=== PATIENT | male | born 1960 | race Caucasian/White ===

== ENCOUNTER 2017-06-04 14:25 | Inpatient (IN) | payer MEDICARE ==
[~2017-06-04] VITALS: Ht 167.6 cm; Wt 99.8 kg
[~2017-06-04 14:25] MED LIST: ASPI81TA31 PO; Glipizide PO; HYDR4TAB4 PO; LITH300T3 PO; Lisinopril PO; OMEP20CA4 PO; SITA50TA PO; Zolpidem Tartrate PO
[2017-06-04] MEDS ORDERED: CLON0.1T PO (14:42)
[2017-06-04] MEDS ORDERED: TEMA30CA5 PO (14:42)
[2017-06-04] MEDS ORDERED: CLON2TAB PO (14:42)
[2017-06-04] MEDS ORDERED: METF10002 PO (14:42)
[2017-06-04] MEDS ORDERED: IV NORMAL SALINE 1000 ML BAG IV ONE (15:30)
[2017-06-04] MEDS ORDERED: MORPHINE SULFATE 4 MG/1 ML DISP.SYRIN IV ONE (15:30)
[2017-06-04] MEDS ORDERED: ONDANSETRON 4 MG/2 ML VIAL IV ONE (15:30)
[2017-06-04 15:53] LABS: BASOPHILS % (AUTO) 0.2 % (0.0-2.0); CREATININE 1.1 mg/dL (0.6-1.3); EOSINOPHILS # (AUTO) 0.1 K/uL (0.0-0.7); EOSINOPHILS % (AUTO) 0.7 % (0.0-7.0); HEMATOCRIT 50.5 % (40-50); HEMOGLOBIN 16.3 G/DL (14.0-18.0); LYMPHOCYTES # (AUTO) 1.1 K/UL (0.8-4.8); LYMPHOCYTES % (AUTO) 14.6 % (20.5-51.5); MEAN CORPUSCULAR HEMOGLOBIN 28.4 UUG (27.0-31.0); MEAN CORPUSCULAR HGB CONC 32 g/dL (32.0-37.0); MEAN CORPUSCULAR VOLUME 87.6 FL (82.0-92.0); MONOCYTES # (AUTO) 0.4 K/UL (0.1-1.30); NEUTROPHILS # (AUTO) 5.8 K/UL (1.8-8.9); NEUTROPHILS % (AUTO) 79.5 % (38.5-71.5); PLATELET COUNT (AUTO) 216 K/UL (150-450); POTASSIUM 3.8 mmol/L (3.5-5.1); RED BLOOD CELL COUNT(AUTO) 5.76 MIL/UL (4.7-6.1); WHITE BLOOD COUNT (AUTO) 7.4 K/UL (4.0-11.2)
[2017-06-04] MEDS ORDERED: ONDANSETRON 4 MG/2 ML VIAL ONE (16:03)
[2017-06-04] MEDS ORDERED: MORPHINE SULFATE 4 MG/1 ML DISP.SYRIN ONE (16:03)
[2017-06-04 16:05] LABS: BILIRUBIN,DIRECT 0.4 mg/dL (0.0-0.2); BILIRUBIN,TOTAL 1.1 mg/dL (0.2-1.0); TOTAL PROTEIN, SERUM 6.9 g/dL (6.4-8.2)
[2017-06-04] MEDS ORDERED: IV NS 1000 ML 1,000 ML IV ONE (16:30)
--- NOTE | 2017-06-04 17:57 | NUR ---
PT WAS EVALUATED BY DR WOLFF. PT WAS MEDICATED ACCORDING TO ER MD ORDERS. PT WAS TRANSFERED TO ROOM #220. REPORT WAS GIVEN TO JEEVAN M/Brittany.
[2017-06-04 18:51] VITALS: BP 130/75
[2017-06-04 19:00] VITALS: BP 130/75
[2017-06-04] MEDS ORDERED: CLONAZEPAM 0.5 MG TABLET PO PRN (19:15)
[2017-06-04] MEDS ORDERED: MAGNESIUM HYDROXIDE 30 ML LIQUID UDC PO PRN (19:15)
[2017-06-04] MEDS ORDERED: ONDANSETRON 4 MG/2 ML VIAL IV PRN (19:15)
[2017-06-04] MEDS ORDERED: HYDROMORPHONE 1 MG/1 ML DISP.SYRIN IV PRN (19:15)
--- NOTE | 2017-06-04 19:30 | NUR ---
RECEIVED PT IN BED, AWAKE, ALERT. NENANA. ADMITTED TO MED SURG UNDER CARE OF DR. HALL. DX: DEHYDRATION, ABDOMINAL PAIN. INITIATE ADMISSION ASSESSMENTS. SAFETY OBSERVED. CALL LIGHT WITHIN REACH.
[2017-06-04] MEDS: DOCUSATE SODIUM 100 MG CAPSULE PO SCH (20:04)
[2017-06-04] MEDS: METFORMIN HCL 500 MG TABLET PO SCH (20:04)
[2017-06-04] MEDS: TEMAZEPAM 30 MG CAPSULE PO SCH (20:05)
[2017-06-04] MEDS: CLONIDINE HCL 0.1 MG TABLET PO SCH (20:06)
[2017-06-04] MEDS: HYDROMORPHONE 2 MG/1 ML DISP.SYRIN IV PRN (20:06)
[2017-06-05] MEDS: HYDROMORPHONE 2 MG/1 ML DISP.SYRIN IV PRN ×6 (00:24→20:49)
[2017-06-05 05:00] VITALS: BP 134/88
[2017-06-05] MEDS: PANTOPRAZOLE SODIUM 40 MG TABLET.DR PO SCH (06:23)
[2017-06-05 07:00] LABS: BASOPHILS % (AUTO) 0.2 % (0.0-2.0); EOSINOPHILS # (AUTO) 0.1 K/uL (0.0-0.7); EOSINOPHILS % (AUTO) 1.2 % (0.0-7.0); HEMATOCRIT 45.8 % (40-50); HEMOGLOBIN 15.2 G/DL (14.0-18.0); LYMPHOCYTES # (AUTO) 1.4 K/UL (0.8-4.8); LYMPHOCYTES % (AUTO) 24.9 % (20.5-51.5); MEAN CORPUSCULAR HGB CONC 33 g/dL (32.0-37.0); MEAN CORPUSCULAR VOLUME 87.1 FL (82.0-92.0); MONOCYTES # (AUTO) 0.3 K/UL (0.1-1.30); MONOCYTES % (AUTO) 4.6 % (0.0-11.0); NEUTROPHILS % (AUTO) 69.1 % (38.5-71.5); PLATELET COUNT (AUTO) 185 K/UL (150-450); RED BLOOD CELL COUNT(AUTO) 5.25 MIL/UL (4.7-6.1); WHITE BLOOD COUNT (AUTO) 5.8 K/UL (4.0-11.2)
--- NOTE | 2017-06-05 07:00 | NUR ---
PT SLEPT INTERMITTENTLY. IN NO ACUTE DISTRESS. ON PAIN MANAGEMENT FOR LEFT ARM PAIN, AND WITH SOME RELIEF. AMBULATORY. SAFETY MAINTAINED. CALL LIGHT WITHIN REACH.
[2017-06-05] MEDS: glipiZIDE 10 MG TABLET PO SCH ×2 (07:01→16:12)
--- NOTE | 2017-06-05 07:29 | NUR ---
PT RECEIVED IN BED SLEEPING,NO C/O PAIN NOTED.PT IS H O H AND AXOX4.BREAKFAST SERVED.
[2017-06-05] MEDS ORDERED: [UNRECOGNIZED DRUG - OTHER] PO SCH (07:30)
[2017-06-05 07:31] LABS: THYROID STIMULATING HORMONE 1.928 mIU/mL (0.358-3.740)
[2017-06-05 07:52] LABS: BILIRUBIN,TOTAL 0.6 mg/dL (0.2-1.0); CREATININE 1.5 mg/dL (0.6-1.3); MAGNESIUM 1.8 mg/dL (1.8-2.4); PHOSPHOROUS 1.8 mg/dL (2.5-4.9); POTASSIUM 3.8 mmol/L (3.5-5.1); TOTAL PROTEIN, SERUM 6.6 g/dL (6.4-8.2)
[2017-06-05] MEDS: LITHIUM CARBONATE 300 MG TABLET PO SCH ×2 (08:00→16:12)
[2017-06-05] MEDS: METFORMIN HCL 500 MG TABLET PO SCH ×2 (08:00→17:01)
[2017-06-05] MEDS: CLONIDINE HCL 0.1 MG TABLET PO SCH ×2 (08:00→20:44)
[2017-06-05] MEDS: FOLIC ACID 1 MG TABLET PO SCH (08:18)
[2017-06-05] MEDS: THIAMINE HCL 100 MG TABLET PO SCH (08:18)
[2017-06-05] MEDS: MULTIVITAMINS,THERAPEUTIC TABLET PO SCH (08:18)
[2017-06-05] MEDS ORDERED: Medication Not On Formulary EA (Metformin Hcl 1,000 MG) PO SCH (09:00)
[2017-06-05] MEDS ORDERED: DEXTROSE 50% 50 ML DISP.SYRIN IV PRN (10:15)
[2017-06-05] MEDS: BLOOD SUGAR DIAGNOSTIC 1 EACH STRIP VI SCH ×3 (11:05→20:53)
[2017-06-05] MEDS: INSULIN REGULAR, HUMAN 300 UNIT/3 ML VIAL SQ PRN ×3 (11:15→21:43)
[2017-06-05 11:34] VITALS: BP 122/72
[2017-06-05] MEDS ORDERED: NEUTRA PHOS PACKET PO ONE (15:15)
[2017-06-05 16:02] VITALS: BP 145/91
--- NOTE | 2017-06-05 17:13 | NUR ---
PT SLEPT INTERMITTENTLY. IN NO ACUTE DISTRESS. ON PAIN MANAGEMENT FOR LEFT ARM PAIN, AND WITH SOME RELIEF. AMBULATORY. SAFETY MAINTAINED. CALL LIGHT WITHIN REACH.
--- NOTE | 2017-06-05 19:45 | NUR ---
PT RECEIVED IN BED, AWAKE. A/OX4. ABLE TO MAKE NEEDS KNOWN. STATES HE IS DEAF, USE OF NOTE PAD TO COMMUNICATE. V/S STABLE. NO SIGNS OF ACUTE DISTRESS NOTED. NO COMPLAINTS OF PAIN AT THIS TIME. IV LINE INTACT/PATENT, C/D/I, HEP-LOCKED. PT IS AMBULATORY. SAFETY MEASURES IMPLEMENTED. CALL LIGHT WITHIN REACH. WILL CONTINUE TO MONITOR.
[2017-06-05 20:00] VITALS: BP 154/96
[2017-06-05] MEDS: DOCUSATE SODIUM 100 MG CAPSULE PO SCH (20:44)
[2017-06-05] MEDS: TEMAZEPAM 30 MG CAPSULE PO SCH (20:45)
[2017-06-06] MEDS: HYDROMORPHONE 2 MG/1 ML DISP.SYRIN IV PRN ×6 (01:41→21:21)
[2017-06-06 05:03] VITALS: BP 145/86
[2017-06-06] MEDS: glipiZIDE 10 MG TABLET PO SCH ×2 (06:33→16:03)
[2017-06-06] MEDS: PANTOPRAZOLE SODIUM 40 MG TABLET.DR PO SCH (06:33)
[2017-06-06] MEDS: BLOOD SUGAR DIAGNOSTIC 1 EACH STRIP VI SCH ×4 (06:34→21:25)
--- NOTE | 2017-06-06 07:26 | NUR ---
END OF SHIFT NOTES. PT SLEPT INTERMITTENTLY THROUGHOUT SHIFT. V/S STABLE. NO SIGNS OF ACUTE DISTRESS. PT COMPLAINTS OF LEFT ARM PAIN. PAIN MEDICATIONS ADMINISTERED ORDERED. NEW IV STARTED IN RIGHT HAND. IV RIGHT SHOULDER D/C. NEEDS ATTENDED. SAFETY MAINTAINED. CALL LIGHT WITHIN REACH.
[2017-06-06] MEDS: MULTIVITAMINS,THERAPEUTIC TABLET PO SCH (08:00)
[2017-06-06] MEDS: LITHIUM CARBONATE 300 MG TABLET PO SCH ×2 (08:00→16:03)
[2017-06-06] MEDS: THIAMINE HCL 100 MG TABLET PO SCH (08:00)
[2017-06-06] MEDS: FOLIC ACID 1 MG TABLET PO SCH (08:00)
[2017-06-06] MEDS: METFORMIN HCL 500 MG TABLET PO SCH ×2 (08:00→17:06)
[2017-06-06] MEDS: CLONIDINE HCL 0.1 MG TABLET PO SCH ×2 (08:00→21:19)
[2017-06-06] MEDS: INSULIN REGULAR, HUMAN 300 UNIT/3 ML VIAL SQ PRN ×3 (11:02→21:29)
--- NOTE | 2017-06-06 15:50 | NUR ---
RECEIVED PT IN BED, AWAKE, ALERT. COMANCHE. SAFETY OBSERVED. CALL LIGHT WITHIN REACH.
[2017-06-06 16:08] VITALS: BP 138/70
[2017-06-06 16:36] LABS: PHOSPHOROUS 2.4 mg/dL (2.5-4.9); POTASSIUM 3.5 mmol/L (3.5-5.1)
[2017-06-06] MEDS: LORAZEPAM 2 MG/1 ML VIAL IV PRN ×2 (16:54→23:22)
[2017-06-06] MEDS ORDERED: HYDROMORPHONE 2 MG/1 ML DISP.SYRIN IV PRN (17:00)
--- NOTE | 2017-06-06 19:30 | NUR ---
PT RECEIVED IN BED, ASLEEP. V/S STABLE. NO ACUTE DISTRESS NOTED. PT SHOWS NO SIGNS OF PAIN AT THIS TIME. IV LINE C/D/I AND PATENT. SAFETY MEASURES IMPLEMENTED. CALL LIGHT WITHIN REACH. WILL CONT TO MONITOR.
[2017-06-06 20:25] VITALS: BP 137/80
[2017-06-06] MEDS: DOCUSATE SODIUM 100 MG CAPSULE PO SCH (21:18)
[2017-06-06] MEDS: TEMAZEPAM 30 MG CAPSULE PO SCH (21:19)
[2017-06-07] MEDS: HYDROMORPHONE 2 MG/1 ML DISP.SYRIN IV PRN ×8 (00:14→21:17)
[2017-06-07 04:47] VITALS: BP 158/97
--- NOTE | 2017-06-07 05:34 | NUR ---
END OF SHIFT NOTES. PT SLEPT INTERMITTENTLY THROUGHOUT SHIFT. NEEDS ATTENDED. V/S STABLE. NO ACUTE DISTRESS NOTED. PT COMPLAINT OF LEFT ARM PAIN. ADMINISTERED PAIN MEDICATION ORDERED. PT VERBALIZED RELIEF OF PAIN. SAFETY MAINTAINED. CALL LIGHT WITHIN REACH
[2017-06-07] MEDS: PANTOPRAZOLE SODIUM 40 MG TABLET.DR PO SCH (06:12)
[2017-06-07] MEDS: glipiZIDE 10 MG TABLET PO SCH ×2 (06:12→15:46)
[2017-06-07] MEDS: BLOOD SUGAR DIAGNOSTIC 1 EACH STRIP VI SCH ×4 (06:17→21:25)
[2017-06-07] MEDS: LORAZEPAM 2 MG/1 ML VIAL IV PRN ×2 (07:27→22:39)
[2017-06-07] MEDS: INSULIN REGULAR, HUMAN 300 UNIT/3 ML VIAL SQ PRN ×2 (07:28→15:40)
[2017-06-07] MEDS: LITHIUM CARBONATE 300 MG TABLET PO SCH ×2 (08:16→16:09)
[2017-06-07] MEDS: MULTIVITAMINS,THERAPEUTIC TABLET PO SCH (08:16)
[2017-06-07] MEDS: METFORMIN HCL 500 MG TABLET PO SCH ×2 (08:16→17:04)
[2017-06-07] MEDS: CLONIDINE HCL 0.1 MG TABLET PO SCH ×2 (08:16→21:16)
[2017-06-07] MEDS: FOLIC ACID 1 MG TABLET PO SCH (08:16)
[2017-06-07] MEDS: THIAMINE HCL 100 MG TABLET PO SCH (08:16)
[2017-06-07 10:42] LABS: BILIRUBIN,TOTAL 0.4 mg/dL (0.2-1.0); CREATININE 1.1 mg/dL (0.6-1.3); MAGNESIUM 1.8 mg/dL (1.8-2.4); PHOSPHOROUS 3.4 mg/dL (2.5-4.9); POTASSIUM 3.3 mmol/L (3.5-5.1); TOTAL PROTEIN, SERUM 6.2 g/dL (6.4-8.2)
[2017-06-07 10:54] LABS: BASOPHILS % (AUTO) 0.3 % (0.0-2.0); EOSINOPHILS # (AUTO) 0.4 K/uL (0.0-0.7); EOSINOPHILS % (AUTO) 7.7 % (0.0-7.0); HEMOGLOBIN 13.9 G/DL (14.0-18.0); LYMPHOCYTES # (AUTO) 2.1 K/UL (0.8-4.8); LYMPHOCYTES % (AUTO) 37.3 % (20.5-51.5); MEAN CORPUSCULAR HEMOGLOBIN 27.9 UUG (27.0-31.0); MEAN CORPUSCULAR HGB CONC 32 g/dL (32.0-37.0); MEAN CORPUSCULAR VOLUME 88.3 FL (82.0-92.0); MONOCYTES # (AUTO) 0.3 K/UL (0.1-1.30); MONOCYTES % (AUTO) 5.8 % (0.0-11.0); NEUTROPHILS # (AUTO) 2.7 K/UL (1.8-8.9); NEUTROPHILS % (AUTO) 48.9 % (38.5-71.5); PLATELET COUNT (AUTO) 149 K/UL (150-450); RED BLOOD CELL COUNT(AUTO) 4.98 MIL/UL (4.7-6.1); WHITE BLOOD COUNT (AUTO) 5.5 K/UL (4.0-11.2)
[2017-06-07 11:55] VITALS: BP 129/78
[2017-06-07 16:08] VITALS: BP 126/76
[2017-06-07 20:24] VITALS: BP 139/83
[2017-06-07] MEDS: DOCUSATE SODIUM 100 MG CAPSULE PO SCH (21:16)
[2017-06-07] MEDS: TEMAZEPAM 30 MG CAPSULE PO SCH (21:18)
[2017-06-08] MEDS: HYDROMORPHONE 2 MG/1 ML DISP.SYRIN IV PRN ×5 (00:12→12:17)
[2017-06-08 04:56] VITALS: BP 144/89
[2017-06-08] MEDS: PANTOPRAZOLE SODIUM 40 MG TABLET.DR PO SCH (06:17)
[2017-06-08] MEDS: INSULIN REGULAR, HUMAN 300 UNIT/3 ML VIAL SQ PRN (07:51)
[2017-06-08] MEDS: METFORMIN HCL 500 MG TABLET PO SCH (07:51)
[2017-06-08] MEDS: BLOOD SUGAR DIAGNOSTIC 1 EACH STRIP VI SCH ×2 (07:51→11:38)
[2017-06-08] MEDS: glipiZIDE 10 MG TABLET PO SCH (07:55)
[2017-06-08] MEDS: LORAZEPAM 2 MG/1 ML VIAL IV PRN (07:55)
[2017-06-08] MEDS: LITHIUM CARBONATE 300 MG TABLET PO SCH (08:06)
[2017-06-08] MEDS: FOLIC ACID 1 MG TABLET PO SCH (08:07)
[2017-06-08] MEDS: THIAMINE HCL 100 MG TABLET PO SCH (08:07)
[2017-06-08] MEDS: MULTIVITAMINS,THERAPEUTIC TABLET PO SCH (08:07)
[2017-06-08] MEDS: CLONIDINE HCL 0.1 MG TABLET PO SCH (08:07)
--- NOTE | 2017-06-08 10:00 | NUR ---
PT REFUSED THE ABDOMINAL US ,EAT HIS BREAKFAST, MADE AWARE.
[2017-06-08 11:11] VITALS: BP 112/65
[2017-06-08] MEDS ORDERED: MULT-24 PO (13:53)
[2017-06-08] MEDS ORDERED: HYDR2TAB4 PO (13:53)
--- NOTE | 2017-06-08 14:36 | NUR ---
d/c orders received noted and carried out.d/c instructions and educations given to the pt,d/c jon per md orders.pt left the facility via private car in stable condition.
== END 2017-06-08 14:40 | disposition home or self-care (01) | DRG 391 ==
LOC: ER 14:25 → MED 17:54
PROVIDERS: ADMIT Internal Medicine; ATTEND Internal Medicine
DX: A08.4 Viral intestinal infection, unspecified (principal); I50.31 Acute diastolic (congestive) heart failure; N17.0 Acute kidney failure with tubular necrosis; F11.20 Opioid dependence, uncomplicated; E11.65 Type 2 diabetes mellitus with hyperglycemia; E83.119 Hemochromatosis, unspecified; E66.9 Obesity, unspecified; E86.0 Dehydration; E88.81 Metabolic syndrome and other insulin resistance; F10.10 Alcohol abuse, uncomplicated; E11.40 Type 2 diabetes mellitus with diabetic neuropathy, unspecified; G89.4 Chronic pain syndrome; H91.90 Unspecified hearing loss, unspecified ear; I25.10 Atherosclerotic heart disease of native coronary artery without angina pectoris; K74.60 Unspecified cirrhosis of liver; K80.20 Calculus of gallbladder without cholecystitis without obstruction; F41.9 Anxiety disorder, unspecified; F43.10 Post-traumatic stress disorder, unspecified; F03.90 Unspecified dementia, unspecified severity, without behavioral disturbance, psychotic disturbance, mood disturbance, and anxiety; X58.XXXS Exposure to other specified factors, sequela; F31.9 Bipolar disorder, unspecified; Z68.35 Body mass index [BMI] 35.0-35.9, adult; K70.10 Alcoholic hepatitis without ascites; Y90.9 Presence of alcohol in blood, level not specified; I11.0 Hypertensive heart disease with heart failure; F29 Unspecified psychosis not due to a substance or known physiological condition; S09.90XS Unspecified injury of head, sequela; V49.9XXS Car occupant (driver) (passenger) injured in unspecified traffic accident, sequela
CPT/HCPCS: 36415; 70030-TC; 71010; 73080; 73090; 73110; 83550; 83690; 83735; 84100; 84443; 85025; 93005; 93307; A4663; J1170; J1815; J2060; J2270; J2405; J7030

== ENCOUNTER 2017-07-09 11:43 | Inpatient (IN) | payer MEDICARE ==
[~2017-07-09] VITALS: Ht 170.2 cm; Wt 86.2 kg
[~2017-07-09 11:43] MED LIST changes: -ASPI81TA31 PO; +CLON0.1T PO; +CLON2TAB PO; +HYDR2TAB4 PO; -HYDR4TAB4 PO; -Lisinopril PO; +METF10002 PO; +MULT-24 PO; -OMEP20CA4 PO; -SITA50TA PO; +TEMA30CA5 PO; -Zolpidem Tartrate PO
[2017-07-09] MEDS ORDERED: IV NORMAL SALINE 1000 ML BAG IV ONE (12:15)
[2017-07-09 12:41] LABS: BASOPHILS # (AUTO) 0.2 K/uL (0.0-8.0); BASOPHILS % (AUTO) 4.3 % (0.0-2.0); EOSINOPHILS % (AUTO) 0.2 % (0.0-7.0); HEMATOCRIT 49.9 % (40-50); HEMOGLOBIN 16.1 G/DL (14.0-18.0); LYMPHOCYTES # (AUTO) 1.3 K/UL (0.8-4.8); LYMPHOCYTES % (AUTO) 23.3 % (20.5-51.5); MEAN CORPUSCULAR HEMOGLOBIN 28.9 UUG (27.0-31.0); MEAN CORPUSCULAR HGB CONC 32 g/dL (32.0-37.0); MEAN CORPUSCULAR VOLUME 89.8 FL (82.0-92.0); MONOCYTES # (AUTO) 0.5 K/UL (0.1-1.30); MONOCYTES % (AUTO) 9.2 % (0.0-11.0); NEUTROPHILS # (AUTO) 3.6 K/UL (1.8-8.9); PLATELET COUNT (AUTO) 188 K/UL (150-450); RED BLOOD CELL COUNT(AUTO) 5.56 MIL/UL (4.7-6.1); WHITE BLOOD COUNT (AUTO) 5.6 K/UL (4.0-11.2)
[2017-07-09] MEDS ORDERED: ONDANSETRON 4 MG/2 ML VIAL IV ONE (12:45)
[2017-07-09] MEDS ORDERED: HYDROMORPHONE 1 MG/1 ML DISP.SYRIN IV ONE (12:45)
[2017-07-09 12:49] LABS: BILIRUBIN,DIRECT 0.3 mg/dL (0.0-0.2); BILIRUBIN,TOTAL 1.1 mg/dL (0.2-1.0); CREATININE 1.3 mg/dL (0.6-1.3)
[2017-07-09 12:54] LABS: POTASSIUM 2.7 mmol/L (3.5-5.1)
[2017-07-09] MEDS ORDERED: ONDANSETRON 4 MG/2 ML VIAL ONE (12:57)
[2017-07-09] MEDS ORDERED: HYDROMORPHONE 2 MG/1 ML DISP.SYRIN ONE (12:57)
[2017-07-09] MEDS ORDERED: POTASSIUM CHLORIDE 50 ML IV STA (13:14)
[2017-07-09] MEDS ORDERED: POTASSIUM CHLORIDE 100 ML ONE (13:32)
[2017-07-09] MEDS ORDERED: METRONIDAZOLE 500 MG/NS 100 ML PIGGYBACK IV ONE (14:15)
[2017-07-09] MEDS ORDERED: METRONIDAZOLE 500 MG/NS 100ML 100 ML IV ONE (14:29)
--- NOTE | 2017-07-09 14:40 | NUR ---
Patient reported burning at IV site, IV infusion stopped temporarily so patient can rest, will resume infusion in 10 minutes per patient request.
[2017-07-09] MEDS ORDERED: LORAZEPAM 2 MG/1 ML VIAL IV ONE (14:45)
[2017-07-09] MEDS ORDERED: LORAZEPAM 2 MG/1 ML VIAL ONE (14:56)
--- NOTE | 2017-07-09 15:05 | NUR ---
Pt. admitted to TELE, under care of Dr. Coy Belongs List completed
--- NOTE | 2017-07-09 15:15 | NUR ---
Received from ER per irena, this 57 yo male, with the chief complaint of abdominal pain and diarrhea, with the diagnosis of Hypokalemia. Transferred to bed comfortably. Routine admission care rendered. Placed on tele, ST. Awake, alert, oriented x 3, deaf, able to move all extremities on purpose, ambulatory. Noted discharge and redness on left eye. Placed on contact isolation. Dr. Coy informed of admission.
[2017-07-09 15:29] VITALS: BP 182/103
[2017-07-09] MEDS ORDERED: HYDROCODONE/APAP 5-325MG TABLET PO PRN (16:15)
[2017-07-09] MEDS ORDERED: ACETAMINOPHEN 325 MG TABLET PO PRN (16:15)
[2017-07-09] MEDS ORDERED: ONDANSETRON 4 MG/2 ML VIAL IV PRN (16:15)
[2017-07-09] MEDS ORDERED: ZOLPIDEM 5 MG TABLET PO PRN (16:15)
[2017-07-09] MEDS ORDERED: HYDROCODONE/APAP 10-325 MG TABLET PO PRN (16:15)
[2017-07-09] MEDS ORDERED: Z GUARD REMEDY PASTE 57 GM TUBE TOP PRN (16:15)
[2017-07-09] MEDS ORDERED: DEXTROSE 50% 50 ML DISP.SYRIN IV PRN (16:30)
[2017-07-09] MEDS: MORPHINE SULFATE 2 MG/1 ML DISP.SYRIN IV PRN ×3 (16:47→22:59)
[2017-07-09] MEDS: IV NS 1000 ML 1,000 ML IV PRN (16:47)
[2017-07-09] MEDS: LITHIUM CARBONATE 300 MG TABLET PO SCH (16:57)
[2017-07-09] MEDS: glipiZIDE 10 MG TABLET PO SCH (16:58)
--- NOTE | 2017-07-09 17:00 | NUR ---
Complaining of pain, Morphine IV given. IVF started as ordered. Dinner served.
[2017-07-09] MEDS: BLOOD SUGAR DIAGNOSTIC 1 EACH STRIP VI SCH ×2 (17:01→20:00)
[2017-07-09] MEDS: CEFTRIAXONE 1 G in IV DEXTROSE 5% 50 ML IV SCH (17:01)
[2017-07-09] MEDS: INSULIN REGULAR, HUMAN 300 UNIT/3 ML VIAL SQ PRN (17:02)
[2017-07-09] MEDS ORDERED: METFORMIN HCL 850 MG TABLET PO SCH (18:00)
[2017-07-09 18:39] VITALS: BP 123/80
[2017-07-09] MEDS: METFORMIN HCL 500 MG TABLET PO SCH (18:39)
[2017-07-09 20:00] VITALS: BP 142/82
[2017-07-09] MEDS: CLONIDINE HCL 0.1 MG TABLET PO SCH (20:00)
[2017-07-09] MEDS: METRONIDAZOLE 500 MG/NS 100ML 500 MG in PREMIXED 1 EACH IV SCH (21:05)
[2017-07-10] MEDS: MORPHINE SULFATE 2 MG/1 ML DISP.SYRIN IV PRN ×8 (02:02→23:43)
[2017-07-10 04:29] LABS: *BILIRUBIN,URIN 1+ (NEGATIVE); *BLOOD, URINE NEGATIVE (NEGATIVE); *COLOR,URINE AMBER (YELLOW); *PROTEIN,URINE 2+ (NEGATIVE); *UROBILINOGEN,URINE 0.2 E.U./dl (NORMAL); LEUKOCYTE ESTERASE ,URINE NEGATIVE (NEGATIVE); NITRITE, URINE NEGATIVE (NEGATIVE); PH,URINE 7.5 (5.0-8.0); UGLUCOSE NEGATIVE (NEGATIVE)
[2017-07-10 04:40] LABS: *CLARITY,URINE CLEAR (CLEAR)
[2017-07-10 04:41] LABS: *KETONES,URINE NEGATIVE (NEGATIVE)
[2017-07-10 04:42] LABS: BACTERIA,URINE NONE SEEN /HPF (NONE SEEN); SQUAMOUS EPITHELIAL CELL,UR NONE SEEN /HPF (NONE SEEN); WBC,URINE 0-3 /HPF (0-3)
[2017-07-10] MEDS: METRONIDAZOLE 500 MG/NS 100ML 500 MG in PREMIXED 1 EACH IV SCH ×3 (05:02→21:12)
[2017-07-10 05:06] VITALS: BP 146/86
[2017-07-10] MEDS: IV NS 1000 ML 1,000 ML IV PRN (05:56)
[2017-07-10] MEDS: PANTOPRAZOLE SODIUM 40 MG TABLET.DR PO SCH (06:00)
[2017-07-10 06:35] LABS: BASOPHILS % (AUTO) 0.3 % (0.0-2.0); EOSINOPHILS # (AUTO) 0.1 K/uL (0.0-0.7); EOSINOPHILS % (AUTO) 2.4 % (0.0-7.0); HEMOGLOBIN 14.6 G/DL (14.0-18.0); LYMPHOCYTES # (AUTO) 2.2 K/UL (0.8-4.8); LYMPHOCYTES % (AUTO) 36.6 % (20.5-51.5); MEAN CORPUSCULAR HEMOGLOBIN 29.8 UUG (27.0-31.0); MEAN CORPUSCULAR HGB CONC 33 g/dL (32.0-37.0); MEAN CORPUSCULAR VOLUME 90.1 FL (82.0-92.0); MONOCYTES # (AUTO) 0.4 K/UL (0.1-1.30); MONOCYTES % (AUTO) 6.9 % (0.0-11.0); NEUTROPHILS # (AUTO) 3.3 K/UL (1.8-8.9); NEUTROPHILS % (AUTO) 53.8 % (38.5-71.5); PLATELET COUNT (AUTO) 166 K/UL (150-450)
[2017-07-10] MEDS: BLOOD SUGAR DIAGNOSTIC 1 EACH STRIP VI SCH ×4 (06:38→20:28)
--- NOTE | 2017-07-10 06:44 | NUR ---
PT SLEPT INTERMITTENTLY, IN NO ACUTE DISTRESS. IVF RUNNING, INTACT, NO INFILTRATION NOTED. ACCUCHECKS ORDERED, NO S/S OF HYPO/HYPERGLYCEMIA. PAIN MANAGEMENT ORDERED. IV ANTIBIOTIC ADMINISTERED ORDERED, NO S/S OF ADVERSE REACTION NOTED. SAFETY MEASURES IN PLACE, CALL LIGHT WITHIN REACH, BED ALARM ON. WILL CONTINUE TO MONITOR.
[2017-07-10 06:47] LABS: RED BLOOD CELL COUNT(AUTO) 4.89 MIL/UL (4.7-6.1)
[2017-07-10 07:38] LABS: CREATININE 1.3 mg/dL (0.6-1.3); MAGNESIUM 1.7 mg/dL (1.8-2.4); PHOSPHOROUS 1.9 mg/dL (2.5-4.9); POTASSIUM 3.3 mmol/L (3.5-5.1)
[2017-07-10] MEDS: INSULIN REGULAR, HUMAN 300 UNIT/3 ML VIAL SQ PRN ×2 (07:54→16:43)
[2017-07-10] MEDS: glipiZIDE 10 MG TABLET PO SCH ×2 (07:55→16:40)
[2017-07-10] MEDS: METFORMIN HCL 500 MG TABLET PO SCH ×2 (07:56→16:41)
[2017-07-10] MEDS: MULTIVITAMINS,THERAPEUTIC TABLET PO SCH (07:56)
[2017-07-10] MEDS: LITHIUM CARBONATE 300 MG TABLET PO SCH ×2 (07:56→16:40)
[2017-07-10] MEDS: CLONIDINE HCL 0.1 MG TABLET PO SCH ×2 (07:56→20:33)
--- NOTE | 2017-07-10 08:00 | NUR ---
ALERT AND ORIENTED X3 BUT [place], NO SIGNS OF SOB, C/O ON AND OFF GENERALIZED PAIN PRN MEDS GIVEN
[2017-07-10 11:16] VITALS: BP 102/58
[2017-07-10 11:22] VITALS: BP 117/61
[2017-07-10] MEDS ORDERED: POTASSIUM CHLORIDE 20 MEQ TAB.PRT.SR PO ONE (14:15)
[2017-07-10] MEDS: MAGNESIUM SULFATE/D5W 100 ML IV SCH ×2 (14:32→15:04)
[2017-07-10] MEDS ORDERED: NEUTRA PHOS PACKET PO ONE (15:15)
[2017-07-10] MEDS: CEFTRIAXONE 1 G in IV DEXTROSE 5% 50 ML IV SCH (16:42)
[2017-07-10 20:00] VITALS: BP 153/81
[2017-07-11] MEDS: IV NS 1000 ML 1,000 ML IV PRN ×2 (00:29→14:08)
[2017-07-11 00:30] VITALS: BP 145/75
[2017-07-11] MEDS: MORPHINE SULFATE 2 MG/1 ML DISP.SYRIN IV PRN ×7 (02:43→21:36)
[2017-07-11] MEDS: METRONIDAZOLE 500 MG/NS 100ML 500 MG in PREMIXED 1 EACH IV SCH ×3 (05:50→21:28)
[2017-07-11] MEDS: PANTOPRAZOLE SODIUM 40 MG TABLET.DR PO SCH (06:03)
--- NOTE | 2017-07-11 06:30 | NUR ---
PT SLEPT INTERMITTENTLY, IN NO ACUTE DISTRESS. PAIN MANAGEMENT Q3H ORDERED. NO SIGNIFICANT CHANGE IN CONDITION THROUGHOUT THE SHIFT. PT ON TELE SINUS GRAY. WILL CONTINUE TO MONITOR.
[2017-07-11 06:40] LABS: POTASSIUM 3.2 mmol/L (3.5-5.1)
[2017-07-11] MEDS: BLOOD SUGAR DIAGNOSTIC 1 EACH STRIP VI SCH ×4 (06:53→20:39)
[2017-07-11] MEDS: INSULIN REGULAR, HUMAN 300 UNIT/3 ML VIAL SQ PRN ×2 (07:55→17:03)
--- NOTE | 2017-07-11 08:00 | NUR ---
Pt resting in bed with eyes closed. No signs of respiratory distress or pain. SR/SB on monitor.
[2017-07-11] MEDS: LITHIUM CARBONATE 300 MG TABLET PO SCH ×2 (08:01→16:48)
[2017-07-11] MEDS: MULTIVITAMINS,THERAPEUTIC TABLET PO SCH (08:01)
[2017-07-11] MEDS: glipiZIDE 10 MG TABLET PO SCH ×2 (08:01→16:48)
[2017-07-11] MEDS: METFORMIN HCL 500 MG TABLET PO SCH ×2 (08:01→16:48)
[2017-07-11] MEDS: CLONIDINE HCL 0.1 MG TABLET PO SCH ×2 (08:02→20:34)
[2017-07-11 11:18] VITALS: BP 135/75
--- NOTE | 2017-07-11 12:00 | NUR ---
Pt up OOB ambulating down hallway very loud. Requesting pain medication every 3 hours for chronic pain. Continue with pain management.
[2017-07-11] MEDS ORDERED: POTASSIUM CHLORIDE 20 MEQ TAB.PRT.SR PO ONE ×2 (12:30→14:45)
[2017-07-11 15:17] VITALS: BP 141/66
--- NOTE | 2017-07-11 16:00 | NUR ---
seen by Dr De La Garza. Noted labs with low potassium with orders. Additional 40mg K dur given as ordered by Dr De La Garza. Pt becomes very hostile and agitated during ADLs. Continue IV antibiotics and glucose monitoring. No reactions from insulin and antibiotics noted at this time. Pt's status now changed to Medsurg per Dr Gerber.
[2017-07-11] MEDS: CEFTRIAXONE 1 G in IV DEXTROSE 5% 50 ML IV SCH (16:48)
[2017-07-11 20:00] VITALS: BP 173/82
[2017-07-11] MEDS: CLONAZEPAM 1 MG TABLET PO PRN (20:34)
[2017-07-12] MEDS: MORPHINE SULFATE 2 MG/1 ML DISP.SYRIN IV PRN ×7 (00:35→21:09)
[2017-07-12 04:58] VITALS: BP 165/78
[2017-07-12] MEDS: METRONIDAZOLE 500 MG/NS 100ML 500 MG in PREMIXED 1 EACH IV SCH ×3 (06:34→22:13)
[2017-07-12] MEDS ORDERED: MORPHINE SULFATE 4 MG/1 ML DISP.SYRIN ONE (06:35)
[2017-07-12] MEDS: PANTOPRAZOLE SODIUM 40 MG TABLET.DR PO SCH (06:40)
[2017-07-12] MEDS: BLOOD SUGAR DIAGNOSTIC 1 EACH STRIP VI SCH ×4 (06:52→21:10)
[2017-07-12 07:06] LABS: POTASSIUM 3.6 mmol/L (3.5-5.1)
[2017-07-12] MEDS: INSULIN REGULAR, HUMAN 300 UNIT/3 ML VIAL SQ PRN (07:40)
[2017-07-12] MEDS: METFORMIN HCL 500 MG TABLET PO SCH ×2 (08:00→17:20)
[2017-07-12] MEDS: MULTIVITAMINS,THERAPEUTIC TABLET PO SCH (08:00)
[2017-07-12] MEDS: glipiZIDE 10 MG TABLET PO SCH ×2 (08:00→17:26)
[2017-07-12] MEDS: CLONAZEPAM 1 MG TABLET PO PRN (08:00)
--- NOTE | 2017-07-12 08:00 | NUR ---
PT SLEEPING IN BED, RESTING, NO S/S OF DISTRESS. CONTINUE PAIN MANAGEMENT.
[2017-07-12] MEDS: LITHIUM CARBONATE 300 MG TABLET PO SCH ×2 (08:01→17:20)
[2017-07-12] MEDS: CLONIDINE HCL 0.1 MG TABLET PO SCH ×2 (08:12→21:10)
[2017-07-12] MEDS: IV NS 1000 ML 1,000 ML IV PRN (08:54)
[2017-07-12 11:18] VITALS: BP 142/81
--- NOTE | 2017-07-12 12:03 | NUR ---
PT SEEN BY DR MICHAELA KWON. SEE NOTES. CONTINUE PAIN MANAGEMENT.
[2017-07-12 15:39] VITALS: BP 142/81
--- NOTE | 2017-07-12 16:25 | NUR ---
PT IN ROOM SLEEPING. NO S/S OF RESP DISTRESS. CONTINUE ANTIBIOTICS AT THIS TIME.
[2017-07-12] MEDS: CEFTRIAXONE 1 G in IV DEXTROSE 5% 50 ML IV SCH (17:26)
[2017-07-13] MEDS: MORPHINE SULFATE 2 MG/1 ML DISP.SYRIN IV PRN ×4 (00:02→09:21)
[2017-07-13 05:37] VITALS: BP 139/79
[2017-07-13] MEDS: METRONIDAZOLE 500 MG/NS 100ML 500 MG in PREMIXED 1 EACH IV SCH ×2 (05:41→06:00)
[2017-07-13] MEDS: BLOOD SUGAR DIAGNOSTIC 1 EACH STRIP VI SCH (06:33)
--- NOTE | 2017-07-13 06:52 | NUR ---
PT OVERALL STABLE THROUGHOUT SHIFT. MORPHINE 2MG IV Q2 HR PRN ORDERED. PATIENT ALSO HAS NORCO ORDERED 5-. DISCUSSED WITH PATIENT THAT ORAL MEDS WOULD BE MUCH MORE EFFECTIVE. HE STATES HE HAD NO IDEA THAT HE EVEN HAD PILLS ORDERED AND HE WAS WILLING TO TRY WHATEVER I FELT WAS BETTER EFFECTIVE. AT 0530 I WENT IN TO GIVE HIM A NORCO 30 MIN BEFORE HE WAS DUE FOR A MORPHINE DOSE. I WAS ABOUT TO WRITE WHAT I WAS GIVING HIM ( HE IS DEAF) AND HE SAID DONT BOTHER JUST GIVE ME WHAT YOU NEED TO GIVE ME. I GAVE HIM PROTONIX AND A NORCO . AFTER HE TOOK THE PILLS, HE STATED AT 0600 I WANT MY MORPHINE SHOT. I SAID " I CANT GIVE IT TO YOU AT THAT TIME, I JUST GAVE YOU A PAIN PILL (NORCO). HE GOT UPSET AND STATED HE HAS AN ALLERGY TO VICODIN AND HE IS GOING TO GET SICK. I EXPLAINED THAT THERE IS NO RECORD ON HIS CHART OF ANY ALLERGY TO VICODIN OR NORCO AND I WOULD GET THE CHARGE NURSE TO COME SPEAK TO HIM. IN THE MEAN TIME, HE CAME TO THE NURSE'S STATION AND CLAIMED TO HAVE VOMITED THE MEDICATION. THE MEDICATION IS NOT VISIBLE, PATIENT SAYS IT FLUSHED DOWN THE TOILET. WE EXPLAINED THAT HE WOULD THEN HAVE TO WAIT ONE HOUR BEFORE HE COULD RECEIVE MORPHINE. HE BECAME VERY UPSET AND SAID HE WANTED TO LEAVE AMA. ULTIMATELY, WE COMPROMIZED (PER THE CHARGE NURSE'S ORDER) ON 30 MIN AND HE COULD RECEIVE THE MORPHINE. HE WAS HAPPY WITH THE COMPROMISE. HE IS ANTICIPATING DC HOME THIS A.M. REFUSING IV FLUIDS AT THIS TIME AND REFUSED LAST DOSE OF FLAGYL
[2017-07-13] MEDS: PANTOPRAZOLE SODIUM 40 MG TABLET.DR PO SCH (07:01)
[2017-07-13] MEDS: glipiZIDE 10 MG TABLET PO SCH (07:30)
[2017-07-13] MEDS: METFORMIN HCL 500 MG TABLET PO SCH (08:00)
--- NOTE | 2017-07-13 08:06 | NUR ---
Awake, requesting for breakfast. Desires to go home the soonest.
[2017-07-13] MEDS: INSULIN REGULAR, HUMAN 300 UNIT/3 ML VIAL SQ PRN (08:38)
[2017-07-13] MEDS: MULTIVITAMINS,THERAPEUTIC TABLET PO SCH (08:41)
[2017-07-13] MEDS: CLONIDINE HCL 0.1 MG TABLET PO SCH (08:41)
[2017-07-13] MEDS: LITHIUM CARBONATE 300 MG TABLET PO SCH (08:41)
[2017-07-13] MEDS ORDERED: HYDR2TAB4 PO (10:15)
--- NOTE | 2017-07-13 11:29 | NUR ---
With discharge order to home, self care. Saline lock removed. Prescription and DC instruction given to patient, verbalized understanding. Went home per ambulatory in fair condition, not in distress, afebrile.
== END 2017-07-13 11:20 | disposition home health service (06) | DRG 392 ==
LOC: ER 11:43 → TELE 14:55 → MED 07-11 15:52
DX: A08.4 Viral intestinal infection, unspecified (principal); E11.65 Type 2 diabetes mellitus with hyperglycemia; F03.90 Unspecified dementia, unspecified severity, without behavioral disturbance, psychotic disturbance, mood disturbance, and anxiety; K74.60 Unspecified cirrhosis of liver; F11.20 Opioid dependence, uncomplicated; G62.9 Polyneuropathy, unspecified; K80.20 Calculus of gallbladder without cholecystitis without obstruction; J98.11 Atelectasis; E87.6 Hypokalemia; K76.0 Fatty (change of) liver, not elsewhere classified; S06.9X0S Unspecified intracranial injury without loss of consciousness, sequela; H91.93 Unspecified hearing loss, bilateral; V89.2XXS Person injured in unspecified motor-vehicle accident, traffic, sequela; Z98.42 Cataract extraction status, left eye; Z98.41 Cataract extraction status, right eye; E66.9 Obesity, unspecified; Z68.29 Body mass index [BMI] 29.0-29.9, adult; G89.4 Chronic pain syndrome; Z79.84 Long term (current) use of oral hypoglycemic drugs; Z79.899 Other long term (current) drug therapy; K42.9 Umbilical hernia without obstruction or gangrene; I10 Essential (primary) hypertension; F43.10 Post-traumatic stress disorder, unspecified; E78.5 Hyperlipidemia, unspecified; D17.79 Benign lipomatous neoplasm of other sites
CPT/HCPCS: 36415; 70030-TC; 83690; 83735; 84100; 85025; 86625; 87046; 87177; 89055; 93005; A4663; J0696; J1170; J1815; J2060; J2270; J2405; J3475; J3480; J3490; J7030; J7060

== ENCOUNTER 2017-08-06 15:03 | Inpatient (IN) | payer MEDICARE ==
[~2017-08-06] VITALS: Ht 170.2 cm; Wt 96.6 kg
--- NOTE | 2017-08-06 15:03 | NUR ---
Patient is AOx4 with dried stained shirt & pants, verbalizing "Can I have pain shot and juice?" immediately on arrival to ER, respiration:easy, NAD.
--- NOTE | 2017-08-06 15:19 | NUR ---
Patient was assisted to gown. Urinal & emesis basin are at bedside.
[2017-08-06 15:38] LABS: BASOPHILS # (AUTO) 0.1 K/uL (0.0-8.0); BASOPHILS % (AUTO) 0.8 % (0.0-2.0); EOSINOPHILS % (AUTO) 0.2 % (0.0-7.0); HEMATOCRIT 37.5 % (40-50); HEMOGLOBIN 12.6 G/DL (14.0-18.0); LYMPHOCYTES # (AUTO) 1.4 K/UL (0.8-4.8); MEAN CORPUSCULAR HEMOGLOBIN 29.4 UUG (27.0-31.0); MEAN CORPUSCULAR HGB CONC 34 g/dL (32.0-37.0); MEAN CORPUSCULAR VOLUME 87.7 FL (82.0-92.0); MONOCYTES # (AUTO) 0.7 K/UL (0.1-1.30); MONOCYTES % (AUTO) 4.4 % (0.0-11.0); NEUTROPHILS % (AUTO) 85.6 % (38.5-71.5); PLATELET COUNT (AUTO) 324 K/UL (150-450); RED BLOOD CELL COUNT(AUTO) 4.28 MIL/UL (4.7-6.1); WHITE BLOOD COUNT (AUTO) 15.2 K/UL (4.0-11.2)
[2017-08-06 15:56] LABS: ALKALINE PHOSPHATASE 63 U/L (50-136); ASPARTATE AMINOTRANSFERASE 28 U/L (15-37); BILIRUBIN,DIRECT 0.1 mg/dL (0.0-0.2); BILIRUBIN,TOTAL 0.3 mg/dL (0.2-1.0); CARBON DIOXIDE 23 mmol/L (21-32); CHLORIDE 98 mmol/L (98-107); CREATININE 2.5 mg/dL (0.6-1.3); UREA NITROGEN, BLOOD 27 mg/dL (7-18)
[2017-08-06 16:01] LABS: GLUCOSE 331 mg/dL (74-106)
[2017-08-06 16:05] LABS: ETHANOL < 3 MG/DL (0-0)
[2017-08-06 16:09] LABS: ALANINE AMINOTRANSFERASE 29 U/L (16-63)
--- NOTE | 2017-08-06 16:09 | NUR ---
Patient is back from CT scan in same condition, pending results and disposition.
[2017-08-06 16:19] LABS: BAND % (MANUAL) 7 % (0-10); LYMPHOCYTES % (MANUAL) 7 % (20-40); MONOCYTES % (MANUAL) 4 % (2-10); NEUTROPHILS % (MANUAL) 82 % (42-75)
--- NOTE | 2017-08-06 17:00 | NUR ---
No vomitting seen while in ER, still for urine specimen, endorsed to floor nurse accordingly
[2017-08-06 17:30] VITALS: BP 162/74
--- NOTE | 2017-08-06 17:30 | NUR ---
received from ER awake alert and oriented, deaf, with IVF on the right hand- site slightly swollen, stopped IVF, pt with poor hygiene, washed hands, shoes/socks taken out, tele applied -ST @ 105, routine admission care rendered.
--- NOTE | 2017-08-06 18:00 | NUR ---
informed Dr Acevedo of admission and no iv access- to have a midline- pt informed and agreed
--- NOTE | 2017-08-06 19:00 | NUR ---
midline inserted by Brandon on the right upper arm gauge 18- tolerates well, endorsed to next shift
--- NOTE | 2017-08-06 19:35 | NUR ---
PT RECEIVED IN BED, AWAKE. A/OX4. ABLE TO MAKE NEEDS KNOWN. PT HAS SEVERE HEARING LOSS IN BOTH EARS. REQUESTS TO WRITE ON PAD OF PAPER TO COMMUNICATION. PT V/S STABLE. IN NO ACUTE DISTRESS. PT C/O OF HEAD PAIN 08/09. WILL ADMINISTER PAIN MEDICATION ORDERED. PT MIDLINE INTACT AND PATENT. PT 119 SINUS TACH ON THE TELE MONITOR. AWAITING MD ORDERS. SAFETY MEASURES IMPLEMENTED. CALL LIGHT WITHIN REACH.
[2017-08-06 20:00] VITALS: BP 118/72
--- NOTE | 2017-08-06 21:13 | NUR ---
CLINICAL PHARMACY NOTE: VANCOMYCIN DOSING REQUEST FOR VANCOMYCIN DOSING ON 57 Y/O MALE 5'7" 200lbs for suspected infection Temp 99.8 BUN 27 Scr 2.5 WBC 15.2 band 7 also on zosyn Start vancomycin 1250mg ivpb [id number] estimated trough 16. Will order trough level prior to 4th dose will continue to monitor
--- NOTE | 2017-08-06 21:35 | NUR ---
PT HAS A LOW GRADE FEVER OF 99.8. ADMINISTERED TYLENOL ORDERED. WILL REASSESS.
--- NOTE | 2017-08-06 22:00 | NUR ---
PT C/O DIFFICULTY SLEEPING IN THE HOSPITAL. ADMINISTERED RESTORIL ORDERED. WILL CONTINUE MONITOR.
--- NOTE | 2017-08-06 22:12 | NUR ---
PT HAD TWO EPISODES OF EMESIS. PT ALSO STATES HAVING FEELINGS OF NAUSEA. ADMINISTERED ZOFRAN ORDERED. WILL CONTINUE TO MONITOR.
[2017-08-07] VITALS: BP 128/80
--- NOTE | 2017-08-07 00:15 | NUR ---
[facility] REPORT RECEIVED FROM JEEVAN CROW. PT IS ALERT, RESTING IN BED, IN NO ACUTE DISTRESS. BED ALARM ON, CALL LIGHT WITHIN REACH. WILL CONTINUE PLAN OF CARE.
[2017-08-07 04:00] VITALS: BP 106/65
--- NOTE | 2017-08-07 06:00 | NUR ---
PT SLEPT INTERMITTENTLY, IN NO ACUTE DISTRESS. PT IS ON TELE - SINUS TACHY. IVF RUNNING, NO INFILTRATION NOTED. IV ANTIBIOTIC ADMINISTERED ORDERED, NO ADVERSE REACTION NOTED. PAIN MANAGEMENT ORDERED. ACCUCHECKS ORDERED. SAFETY MEASURES IN PLACE. CALL LIGHT WITHIN REACH, BED ALARM ON. WILL CONTINUE TO MONITOR.
[2017-08-07 06:23] LABS: BASOPHILS % (AUTO) 0.4 % (0.0-2.0); EOSINOPHILS % (AUTO) 0.1 % (0.0-7.0); HEMATOCRIT 27.6 % (40-50); HEMOGLOBIN 9.2 G/DL (14.0-18.0); LYMPHOCYTES # (AUTO) 1.6 K/UL (0.8-4.8); LYMPHOCYTES % (AUTO) 13.4 % (20.5-51.5); MEAN CORPUSCULAR HEMOGLOBIN 29.2 UUG (27.0-31.0); MEAN CORPUSCULAR HGB CONC 33 g/dL (32.0-37.0); MEAN CORPUSCULAR VOLUME 87.6 FL (82.0-92.0); MONOCYTES # (AUTO) 0.8 K/UL (0.1-1.30); MONOCYTES % (AUTO) 6.3 % (0.0-11.0); NEUTROPHILS # (AUTO) 9.7 K/UL (1.8-8.9); NEUTROPHILS % (AUTO) 79.8 % (38.5-71.5); PLATELET COUNT (AUTO) 191 K/UL (150-450); RED BLOOD CELL COUNT(AUTO) 3.15 MIL/UL (4.7-6.1); WHITE BLOOD COUNT (AUTO) 12.1 K/UL (4.0-11.2)
[2017-08-07 06:55] LABS: THYROID STIMULATING HORMONE 0.86 mIU/mL (0.358-3.740)
[2017-08-07 06:56] LABS: BILIRUBIN,TOTAL 0.3 mg/dL (0.2-1.0); CREATININE 1.6 mg/dL (0.6-1.3); MAGNESIUM 1.8 mg/dL (1.8-2.4); PHOSPHOROUS 2.9 mg/dL (2.5-4.9); POTASSIUM 4.3 mmol/L (3.5-5.1); TOTAL PROTEIN, SERUM 5.8 g/dL (6.4-8.2)
--- NOTE | 2017-08-07 07:45 | NUR ---
Awake, alert, oriented x 4, ambulating to the bathroom. IVF infusing. Discussed plan of care
[2017-08-07 08:59] LABS: BAND % (MANUAL) 1 % (0-10); LYMPHOCYTES % (MANUAL) 21 % (20-40); MONOCYTES % (MANUAL) 5 % (2-10); NEUTROPHILS % (MANUAL) 73 % (42-75)
--- NOTE | 2017-08-07 11:00 | NUR ---
bed bath given. Hair wash given
[2017-08-07 11:50] VITALS: BP 117/69
--- NOTE | 2017-08-07 12:08 | NUR ---
Clinical pharmacy note:Vancomycin dosing per pharmacy Subjective: To continue Vancomycin dosing on this patient for suspected infection(no MD note yet) Objective: BUN 45 Scr 1.6 WBC 12.1 Temp 99 Ht 5'7" Wt 200 lbs Assessment/Plan: Since renal function changed significantly(scr 1.6 vs 2.5), will increase dose to 1250mg IV every 20hrs from every 28 hrs (second dose tonight at 1900) and draw trough by 4th dose(not ordered yet) for expected trough around 15. Will monitor renal function closely to adjust the dose if needed. Will follow daily.
[2017-08-07 16:07] VITALS: BP 97/53
--- NOTE | 2017-08-07 18:40 | NUR ---
Dilaudid IV given. Repositioned comfortably
[2017-08-07 20:00] VITALS: BP 126/64
[2017-08-08] VITALS: BP 132/63
[2017-08-08 04:17] VITALS: BP 106/58
[2017-08-08 07:50] LABS: BILIRUBIN,TOTAL 0.1 mg/dL (0.2-1.0); CREATININE 1.2 mg/dL (0.6-1.3); MAGNESIUM 1.8 mg/dL (1.8-2.4); PHOSPHOROUS 2.3 mg/dL (2.5-4.9); POTASSIUM 4.1 mmol/L (3.5-5.1); TOTAL PROTEIN, SERUM 5.6 g/dL (6.4-8.2)
--- NOTE | 2017-08-08 08:00 | NUR ---
AWAKE ALERT COOPERATE WELL NO SOB STATE PAIN MED HELP TO RELIEF PAIN ON FALL PRECAUTION BED ALARM ON AND CALL SOLOMON IN REACH DR HALL WAS INFORM OF HB/HCT WAS 7.6/23.8 NO NEW ORDER
[2017-08-08 08:23] LABS: BASOPHILS % (AUTO) 0.4 % (0.0-2.0); EOSINOPHILS # (AUTO) 0.6 K/uL (0.0-0.7); EOSINOPHILS % (AUTO) 6.8 % (0.0-7.0); LYMPHOCYTES # (AUTO) 2.1 K/UL (0.8-4.8); LYMPHOCYTES % (AUTO) 22.1 % (20.5-51.5); MEAN CORPUSCULAR HEMOGLOBIN 28.3 UUG (27.0-31.0); MEAN CORPUSCULAR HGB CONC 32 g/dL (32.0-37.0); MEAN CORPUSCULAR VOLUME 88.8 FL (82.0-92.0); MONOCYTES # (AUTO) 0.3 K/UL (0.1-1.30); MONOCYTES % (AUTO) 3.4 % (0.0-11.0); NEUTROPHILS # (AUTO) 6.3 K/UL (1.8-8.9); NEUTROPHILS % (AUTO) 67.3 % (38.5-71.5); PLATELET COUNT (AUTO) 171 K/UL (150-450); WHITE BLOOD COUNT (AUTO) 9.3 K/UL (4.0-11.2)
[2017-08-08 08:28] LABS: HEMATOCRIT 23.8 % (40-50); RED BLOOD CELL COUNT(AUTO) 2.68 MIL/UL (4.7-6.1)
[2017-08-08 08:29] LABS: HEMOGLOBIN 7.6 G/DL (14.0-18.0)
[2017-08-08 11:41] LABS: EOSINOPHILS % (MANUAL) 5 % (0-8); LYMPHOCYTES % (MANUAL) 27 % (20-40); METAMYELOCYTES % 1 % (0-1); MONOCYTES % (MANUAL) 4 % (2-10); MYELOCYTES % 1 % (0-0); NEUTROPHILS % (MANUAL) 62 % (42-75)
[2017-08-08 12:13] VITALS: BP 90/47
[2017-08-08 15:18] VITALS: BP 118/62
--- NOTE | 2017-08-08 18:00 | NUR ---
HEMODYNAMIC STATUS STABLE PAIN UNDER CONTROL NO RESPIRATORY DISTRESS SAFETY MEASURE PROVIDED CALL SOLOMON IN REACH
[2017-08-08 20:00] VITALS: BP 109/63
[2017-08-09] VITALS (11 sets, daily range): BP systolic 98–149; BP diastolic 48–71
--- NOTE | 2017-08-09 06:15 | NUR ---
pt continue to have generalized pain,getting dilaudid q3hrs.continue with iv fluids and antibiotic, vss,afebrile,had bm accident in pants and bed last night. diarrhea,linens changed. just started sleeping well this morning around 0500 after few annabelle crackers and juice.voiding and ambulates to toilet.will continue to monitor.all needs attended.
--- NOTE | 2017-08-09 08:00 | NUR ---
RESTING WELL NO PAIN OR SOB AT THIS TIME CONTINUE IVF INFUSION WELL MEGAN MID LINE ON FALL PRECAUTION CALL SOLOMON IN REACH
[2017-08-09 09:23] LABS: BASOPHILS # (AUTO) 0.1 K/uL (0.0-8.0); EOSINOPHILS # (AUTO) 0.7 K/uL (0.0-0.7); EOSINOPHILS % (AUTO) 8.3 % (0.0-7.0); LYMPHOCYTES # (AUTO) 1.3 K/UL (0.8-4.8); LYMPHOCYTES % (AUTO) 15.8 % (20.5-51.5); MEAN CORPUSCULAR HEMOGLOBIN 28.3 UUG (27.0-31.0); MEAN CORPUSCULAR HGB CONC 32 g/dL (32.0-37.0); MONOCYTES # (AUTO) 0.3 K/UL (0.1-1.30); MONOCYTES % (AUTO) 3.6 % (0.0-11.0); NEUTROPHILS # (AUTO) 6.1 K/UL (1.8-8.9); NEUTROPHILS % (AUTO) 71.3 % (38.5-71.5); PLATELET COUNT (AUTO) 166 K/UL (150-450); WHITE BLOOD COUNT (AUTO) 8.5 K/UL (4.0-11.2)
--- NOTE | 2017-08-09 09:25 | NUR ---
DR HALL WAS NOTIFY OF HB/HCT THIS AM AND NEW ORDER TYPING CROSS AND GIVE 1 UNIT OF PRBC TODAY
[2017-08-09 09:28] LABS: HEMATOCRIT 21.8 % (40-50); HEMOGLOBIN 6.9 G/DL (14.0-18.0); RED BLOOD CELL COUNT(AUTO) 2.45 MIL/UL (4.7-6.1)
--- NOTE | 2017-08-09 10:00 | NUR ---
CONSENT FOR BLOOD TRANSFUSION SIGNS AND EXPLAINED TO PATIENT ,VERBALIZES UNDERSTAND
--- NOTE | 2017-08-09 10:30 | NUR ---
ASSIST TO BRP VOIDING WELL GEN VERY WEAK REFUSED TO USE URINAL AND BACK TO BED ,PATIENT ACCIDENT PULLED OUT IV LINE ,CHARGE NURSE INFORM TO CALL FOR RESTART ANOTHER MIDLINE BUT BETWEEN THAT TIME LOREN NSG SNOWBOARDER START NEW LINE ON RAC#20 AND CONTINUE IVF ORDER
[2017-08-09 11:09] LABS: BILIRUBIN,TOTAL 0.2 mg/dL (0.2-1.0); MAGNESIUM 1.8 mg/dL (1.8-2.4); PHOSPHOROUS 2.2 mg/dL (2.5-4.9); POTASSIUM 3.9 mmol/L (3.5-5.1); TOTAL PROTEIN, SERUM 5.8 g/dL (6.4-8.2)
[2017-08-09 11:30] LABS: BAND % (MANUAL) 2 % (0-10); BASOPHILS % (MANUAL) 2 % (0-2); EOSINOPHILS % (MANUAL) 11 % (0-8); LYMPHOCYTES % (MANUAL) 20 % (20-40); METAMYELOCYTES % 1 % (0-1); MONOCYTES % (MANUAL) 2 % (2-10); MYELOCYTES % 4 % (0-0); NEUTROPHILS % (MANUAL) 58 % (42-75)
--- NOTE | 2017-08-09 12:00 | NUR ---
EAT LUNCH MOD AMT RESTING CLOSED OBSERVATION ON FALL PRECAUTION REFUSED TO GO DOWN TO CAT SCAN HEAD AT THIS TIME STATE LATER
--- NOTE | 2017-08-09 14:05 | NUR ---
BLOOD TRANSFUSION GIVEN ORDER VS STABLE NO FAVER PAIN MEDICINE AND ATIVAN GIVEN REQUEST
--- NOTE | 2017-08-09 16:00 | NUR ---
MID LINE INSERTION BY SPECIAL TECH NURSE AT [facility]GAN # [id number] HANY PROCEDURE WELL
--- NOTE | 2017-08-09 17:10 | NUR ---
BLOOD TRANSFUSION COMPLETE NO REACTION .VS STABLE ,TAKE DOWN TO X RAY FOR CT HEAD VIA W/C
--- NOTE | 2017-08-09 17:25 | NUR ---
BACK TO ROOM EAT DINNER WELL NO PAIN OR SOB VS STABLE
--- NOTE | 2017-08-09 17:45 | NUR ---
HEMODYNAMIC STATUS STABLE PAIN UNDER CONTROL MORE AWAKE ALERT AND STRONGER AFTER BLOOD TRANSFUSION COMPLETE SAFETY MEASURE PROVIDED CALL SOLOMON IN REACH AND BED ALARM ON
--- NOTE | 2017-08-09 19:15 | NUR ---
Received pt in bed, awake alert and oriented x 4 verbally responsive but hard of hearing, communicating via notepad and pencil. Currently complaining of neck pain. No apparent distress noted. Safety measures and fall precautions maintained. Bed in lowest position, locked and side rails up x 2. Continue current plan of care.
--- NOTE | 2017-08-09 19:45 | NUR ---
Pt continuing to complain of 8/10 pain in neck area, throbbing and aching. Gave Dilauded 1.5 mg IVP as ordered and tolerated well. All safety measures and fall precautions maintained. Will continue to monitor.
--- NOTE | 2017-08-09 20:30 | NUR ---
Pt currently states pain 02/06. Medication effective. Will continue to monitor.
--- NOTE | 2017-08-09 21:28 | NUR ---
Received orders for CT of abdomen w/o contrast. Pt made aware but refused NPO status. Notified MD regarding pt refusal. Awaiting response.
--- NOTE | 2017-08-09 21:41 | NUR ---
Dr. Acevedo responded and explained to pt and MD stated "his life is in danger if he does not do exactly what I tell him to do." Pt continues to refuse NPO/follow MD instructions for CT scan of the abdomen. Pt stated "sorry." Pt is awake, alert and oriented x 4 and is able to understand what is being explained. Verbally responsive but is hard of hearing, communicates via notepad and paper. MD made aware.
--- NOTE | 2017-08-10 06:19 | NUR ---
Pt is uncooperative with care. Refused 0500 vital signs. Refused AM lab draw, stated that "I want to go to sleep." Continue NPO. Refused AM accu-check. Pt attempted to ask for crackers and milk from [employer] but was not given. Pt became upset when reminded about the NPO. Obtained consent for CT of abdomen w/ contrast. Pt is stable, awake alert and oriented x 4. Verbally responsive, deaf but communicates via notepad and paper. No apparent distress noted. All safety measures and fall precautions maintained. Bed low, locked and side rails up x 2. Call light within reach. Endorsed to next shift.
--- NOTE | 2017-08-10 07:23 | NUR ---
PATIENT REFUSED CONSENT BROUGHT BY METAL ROLLING MILL OPERATOR. STATED "I DONT WANT TO DO IT, I WANTED TO GO HOME". NOTIFY METAL ROLLING MILL OPERATOR, AND ENDORSED TO RN NEXT SHIFT.
--- NOTE | 2017-08-10 07:29 | NUR ---
MD notified regarding pt refusal to give consent and refusal of procedure. Charge nurse notified.
--- NOTE | 2017-08-10 09:00 | NUR ---
PATIENT SEEN AND EXAMINED BY DR RUIZ THE GI WHO SPOKE WITH THE PATIENT AND ORDERED EGD TO BE DONE TOMORROW.
--- NOTE | 2017-08-10 10:00 | NUR ---
PATIENT NOTIFIED THAT SHE WILL NEED TO SIGN CONSCENT FOR THE EGD AND WILL BE ON CLEAR LIQUIDS ORDERED AND NPO AFTER MIDNITE PATIENT STATED NO THAT HE WILL NOT AGREE FOR NPO .DR HALL AWARE AND STATED THAT HE WILL TALK TO THE PATIENT LATER AND WILL POSSIBLY DISCHARGE HIM
[2017-08-10 10:15] LABS: BASOPHILS # (AUTO) 0.1 K/uL (0.0-8.0); BASOPHILS % (AUTO) 1.1 % (0.0-2.0); EOSINOPHILS # (AUTO) 0.2 K/uL (0.0-0.7); EOSINOPHILS % (AUTO) 2.7 % (0.0-7.0); HEMOGLOBIN 7.9 G/DL (14.0-18.0); LYMPHOCYTES # (AUTO) 1.2 K/UL (0.8-4.8); LYMPHOCYTES % (AUTO) 14.9 % (20.5-51.5); MEAN CORPUSCULAR HEMOGLOBIN 29.6 UUG (27.0-31.0); MEAN CORPUSCULAR HGB CONC 33 g/dL (32.0-37.0); MEAN CORPUSCULAR VOLUME 89.1 FL (82.0-92.0); MONOCYTES # (AUTO) 0.3 K/UL (0.1-1.30); MONOCYTES % (AUTO) 3.9 % (0.0-11.0); NEUTROPHILS # (AUTO) 6.5 K/UL (1.8-8.9); NEUTROPHILS % (AUTO) 77.4 % (38.5-71.5); PLATELET COUNT (AUTO) 187 K/UL (150-450); RED BLOOD CELL COUNT(AUTO) 2.66 MIL/UL (4.7-6.1); WHITE BLOOD COUNT (AUTO) 8.3 K/UL (4.0-11.2)
[2017-08-10 10:31] LABS: BILIRUBIN,TOTAL 0.3 mg/dL (0.2-1.0); MAGNESIUM 1.8 mg/dL (1.8-2.4); PHOSPHOROUS 3.3 mg/dL (2.5-4.9); TOTAL PROTEIN, SERUM 5.9 g/dL (6.4-8.2)
[2017-08-10 10:34] LABS: POTASSIUM 5.2 mmol/L (3.5-5.1)
--- NOTE | 2017-08-10 11:10 | NUR ---
H/H IS 7.9/23.7 DR GOVEA NOTIFIED WITH NO NEW ORDERS AT THIS TIME.
[2017-08-10 11:13] LABS: HEMATOCRIT 23.7 % (40-50)
[2017-08-10 11:30] VITALS: BP 127/66
--- NOTE | 2017-08-10 11:40 | NUR ---
BLOOD SUGAR AT THIS TIME IS 176 PATIENT REFUSED INSULIN COVERAGE PER THE SLIDING SCALE.PATIENTS RIGHT TO REFUSE RESPECTED.
--- NOTE | 2017-08-10 12:40 | NUR ---
CLEAR LIQUIDS DIET SERVED ORDERED IN PREPARATION FOR EGD IN THE MORNING BUT PATIENT REFUSED STATED WILL NOT EAT CLEAR LIQUIDS OR BE NPO AFTER MIDNITE SO THE PRESCHOOL ASSOCIATE TEACHER AWARE AND CALLED DR HALL WHO STATED TO PUT PATIENT BACK TO HIS REGULAR DIET ORDER AND WILL SEE PATIENT LATER.
--- NOTE | 2017-08-10 14:35 | NUR ---
DR HALL HERE AND SEEN PATIENT AND STATED TO INCREASE THE DILAUDID TO 2 MG Q3H AND STATED ALSO THAT THE PATIENT HAS AGREED TO TAKE THE CONTRAST AND DO THE CT OF THE ABDOMEN AND PELVIS THAT HE HAD REFUSED TO DO EARLIER
[2017-08-10 15:44] VITALS: BP 122/69
--- NOTE | 2017-08-10 17:58 | NUR ---
CT ABDOMEN AND PELVIS DONE ORDERED AND PATIENT ATE HIS DINNER AND WAS INSTRUCTED THAT HE WILL BE NPO AFTER MIDNITE TONITE AND HE EXPRESSED UNDERSTANDING.REMAIN ON PAIN MEDICATION FOR PAIN ORDERED AND HELPFUL.
--- NOTE | 2017-08-10 19:40 | NUR ---
Received pt in bed, awake alert and oriented x 4, verbally responsive, deaf but uses notepad and pen to communicate. V/S WNL and stable. Pt denies any pain or discomfort at this time. Safety precautions and fall precautions maintained. Bed locked, in lowest position with side rails up x 2. Call light within reach. Continue current plan of care.
[2017-08-10 20:16] VITALS: BP 127/72
[2017-08-11] VITALS (8 sets, daily range): BP systolic 127–150; BP diastolic 65–94
--- NOTE | 2017-08-11 00:30 | NUR ---
WENT TO PATIENT ROOM AND TRIED TO REMOVED ALL LIQUIDS SUCH MILK AND WATER, PATIENT REFUSED TO GIVE UP HIS WATER PITCHER, STATED "I WANTED TO KEEP THE PITCHER" WHEN ATTEMPTED TO REMOVED IT PATIENT STARTED TO YELL AND THREATEN STAFF.
--- NOTE | 2017-08-11 03:00 | NUR ---
Pt refusing vital signs. Refused to cooperate with care. Refuse to have linen changed and room cleaned.
--- NOTE | 2017-08-11 03:07 | NUR ---
WENT TO PATIENT ROOM TO CHECK IV PUMP BEEPING, NOTED IV TUBING WRAPPED AROUND THE POLE, TRIED TO UNWRAPPED THE TUBE, AND CHECK WHY IV IS BEEPING, PATIENT REFUSED TO IV PUMP TO BE FIXED, PATIENT BECAME AGITATED AND THREATENING ME AND RN BATCH PLANT SUPERVISOR, PATIENT SHOW HOSTILE BEHAVIOR. CALLED SECURITY TO TALK TO PATIENT.
--- NOTE | 2017-08-11 06:25 | NUR ---
PATIENT REFUSED TO SIGN THE CONSENT, JUST WANTED HIS PAIN SHOT. PATIENT APPEAR NOT REALLY IN PAIN, BUT MEDICATED FOR PAIN ORDERED. PATIENT AGAIN SHOW HOSTILE BEHAVIOR TOWARD STAFF. UNCOOPERATIVE WITH CARE, VERBALLY ABUSE TO STAFF.
--- NOTE | 2017-08-11 07:02 | NUR ---
Pt in bed, alert awake and oriented x 4. Medicated for pain but refusing vitals. Refusing care provided. Refusing to sign consent for procedure. No apparent distress noted. Safety precautions and fall preventions maintained. Call light within reach. Bed lowest position, locked and side rails x 2. Vitals WNL. Charge nurse made aware.
--- NOTE | 2017-08-11 08:00 | NUR ---
AWAKE ALERT COOPERATE NO PAIN OR SOB NPO FOR EGD TODAY STATE DOES NOT WANT TO SIGNS CONSENT YET ,WANT TO SPEAK WITH GI NURSE INFORM
--- NOTE | 2017-08-11 09:00 | NUR ---
PATIENT WAS VERY ANXIOUS DR HALL SEE PATIENT THIS AM EXPLAINED ALL PROCEDURE TODAY ,VERBALIZES UNDERSTAND ON FALL PRECAUTION CALL SOLOMON IN REACH NPO IVF INFUSION WELL MEGAN MIDLINE
--- NOTE | 2017-08-11 10:00 | NUR ---
TO GI LAB CONDITION STABLE
[2017-08-11 11:40] LABS: BASOPHILS # (AUTO) 0.2 K/uL (0.0-8.0); BASOPHILS % (AUTO) 2.5 % (0.0-2.0); EOSINOPHILS # (AUTO) 0.5 K/uL (0.0-0.7); EOSINOPHILS % (AUTO) 5.6 % (0.0-7.0); LYMPHOCYTES # (AUTO) 1.8 K/UL (0.8-4.8); LYMPHOCYTES % (AUTO) 20.7 % (20.5-51.5); MEAN CORPUSCULAR HEMOGLOBIN 29.3 UUG (27.0-31.0); MEAN CORPUSCULAR HGB CONC 32 g/dL (32.0-37.0); MEAN CORPUSCULAR VOLUME 90.9 FL (82.0-92.0); MONOCYTES # (AUTO) 0.4 K/UL (0.1-1.30); MONOCYTES % (AUTO) 4.9 % (0.0-11.0); NEUTROPHILS # (AUTO) 5.8 K/UL (1.8-8.9); NEUTROPHILS % (AUTO) 66.3 % (38.5-71.5); PLATELET COUNT (AUTO) 195 K/UL (150-450); RED BLOOD CELL COUNT(AUTO) 2.56 MIL/UL (4.7-6.1); WHITE BLOOD COUNT (AUTO) 8.7 K/UL (4.0-11.2)
--- NOTE | 2017-08-11 11:45 | NUR ---
back to room vs stable no pain or sob voiding well use brp with assist
[2017-08-11 11:47] LABS: CREATININE 0.9 mg/dL (0.6-1.3); POTASSIUM 4.1 mmol/L (3.5-5.1)
[2017-08-11 11:48] LABS: HEMATOCRIT 23.3 % (40-50); HEMOGLOBIN 7.5 G/DL (14.0-18.0)
[2017-08-11 11:54] LABS: BILIRUBIN,TOTAL 0.3 mg/dL (0.2-1.0); MAGNESIUM 1.8 mg/dL (1.8-2.4); TOTAL PROTEIN, SERUM 5.9 g/dL (6.4-8.2)
--- NOTE | 2017-08-11 12:30 | NUR ---
EAT WELL PAIN MED GIVEN REQUEST CLOSED OBSERVATION
--- NOTE | 2017-08-11 15:25 | NUR ---
START 1 UNIT OF PRBC HANY PROCEDURE WELL NO REACTION
--- NOTE | 2017-08-11 17:20 | NUR ---
BLOOD TRANSFUSION COMPLETE VS TAKEN STABLE NO REACTION
--- NOTE | 2017-08-11 18:00 | NUR ---
RESTING QUIET IN BED CONDITION STABLE PAIN UNDER CONTROL SAFETY MEASURE PROVIDED BED ALARM ON AND CALL SOLOMON IN REACH
--- NOTE | 2017-08-11 20:07 | NUR ---
a/a/o times 4 family at bs no c/o or distress noted
[2017-08-12 04:43] VITALS: BP 159/88
--- NOTE | 2017-08-12 05:02 | NUR ---
PATIENT UPSET,'states that I never gave the dilaudid iv at 4am.Informed him that I woke him him up to let him know that I was giving it, and he thanked me. bUT HE DENIES that I ever gave it,Informed charge nurse.
--- NOTE | 2017-08-12 05:25 | NUR ---
sOUND ASLEEP. DIDN'T SLEEP MUCH, BECAUSE HE KEPT EYE ON THE CLOCK,WANTING IS PAIN MED EXACTLY EVERY 3 HRS.
--- NOTE | 2017-08-12 06:47 | NUR ---
threatning of and on to go AMA,KEEPS CHANGING HIS MIND
[2017-08-12 06:52] LABS: CREATININE 0.9 mg/dL (0.6-1.3); MAGNESIUM 2.1 mg/dL (1.8-2.4); PHOSPHOROUS 3.8 mg/dL (2.5-4.9); POTASSIUM 4.1 mmol/L (3.5-5.1)
[2017-08-12 07:09] LABS: BASOPHILS % (AUTO) 0.3 % (0.0-2.0); EOSINOPHILS # (AUTO) 0.8 K/uL (0.0-0.7); EOSINOPHILS % (AUTO) 10.7 % (0.0-7.0); HEMATOCRIT 28.3 % (40-50); HEMOGLOBIN 9.4 G/DL (14.0-18.0); LYMPHOCYTES # (AUTO) 1.6 K/UL (0.8-4.8); LYMPHOCYTES % (AUTO) 21.2 % (20.5-51.5); MEAN CORPUSCULAR HEMOGLOBIN 29.8 UUG (27.0-31.0); MEAN CORPUSCULAR HGB CONC 33 g/dL (32.0-37.0); MEAN CORPUSCULAR VOLUME 89.9 FL (82.0-92.0); MONOCYTES # (AUTO) 0.5 K/UL (0.1-1.30); MONOCYTES % (AUTO) 6.9 % (0.0-11.0); NEUTROPHILS # (AUTO) 4.8 K/UL (1.8-8.9); NEUTROPHILS % (AUTO) 60.9 % (38.5-71.5); PLATELET COUNT (AUTO) 212 K/UL (150-450); RED BLOOD CELL COUNT(AUTO) 3.15 MIL/UL (4.7-6.1); WHITE BLOOD COUNT (AUTO) 7.7 K/UL (4.0-11.2)
--- NOTE | 2017-08-12 08:00 | NUR ---
AWAKE ALERT COOPERATE NO SOB OR PAIN AT THIS TIME ON FALL PRECAUTION CALL LIGHT WITHIN REACH AND REMIND TO CALL WHEN NEEDED
--- NOTE | 2017-08-12 12:30 | NUR ---
OOB UP AMB WELL SELF MORE STRONGER AND STATE PAIN MED HELP TO RELIEF PAIN WELL
[2017-08-12 12:45] VITALS: BP 126/64
[2017-08-12 15:27] VITALS: BP 132/71
--- NOTE | 2017-08-12 17:30 | NUR ---
DR HALL SEEN HIM TODAY AND ORDER OK TO DISCHARGE HOME WITH DR DANIEL D/C INSTRUCTION REGARDING F/U WITH PMD CONTINUE HOME MEDICINE ORDER AND EDUCATION PK GAVE VERBALIZES UNDERSTAND AND SIGNS D/C SHEET MID LINE D/C PRIOR D/C HOME
[2017-08-12] MEDS ORDERED: FLUC100T PO (18:28)
[2017-08-12] MEDS ORDERED: HYDR4TAB4 PO (18:28)
[2017-08-12] MEDS ORDERED: PANT40VI IV (18:28)
--- NOTE | 2017-08-12 19:00 | NUR ---
D/C HOME WITH HIS BELONGING MID LINE D/C REFUSED PHAMACY TO EXPLAINED DR DANIEL STATE I KNOW IT COPNDITION STABLE PAIN UNDER CONTROL
== END 2017-08-12 20:08 | disposition home or self-care (01) | DRG 871 ==
LOC: ER 15:04 → TELE 16:48 → MED 08-08 11:43
PROVIDERS: ADMIT Internal Medicine; ATTEND Internal Medicine
PROC: 05H933Z Insertion of Infusion Device into Right Brachial Vein, Percutaneous Approach (ICD-10-PCS; 2017-08-06)
PROC: 30233N1 Transfusion of Nonautologous Red Blood Cells into Peripheral Vein, Percutaneous Approach (ICD-10-PCS; 2017-08-09)
PROC: 05HD33Z Insertion of Infusion Device into Right Cephalic Vein, Percutaneous Approach (ICD-10-PCS; 2017-08-09)
PROC: 0DB68ZX Excision of Stomach, Via Natural or Artificial Opening Endoscopic, Diagnostic (ICD-10-PCS; 2017-08-11)
PROC: 0DB38ZX Excision of Lower Esophagus, Via Natural or Artificial Opening Endoscopic, Diagnostic (ICD-10-PCS; 2017-08-11)
PROC: 0DB48ZX Excision of Esophagogastric Junction, Via Natural or Artificial Opening Endoscopic, Diagnostic (ICD-10-PCS; principal; 2017-08-11 11:15)
DX: A41.9 Sepsis, unspecified organism (principal); N17.0 Acute kidney failure with tubular necrosis; I21.4 Non-ST elevation (NSTEMI) myocardial infarction; K22.11 Ulcer of esophagus with bleeding; K29.71 Gastritis, unspecified, with bleeding; B37.81 Candidal esophagitis; M62.82 Rhabdomyolysis; F11.20 Opioid dependence, uncomplicated; D62 Acute posthemorrhagic anemia; E11.42 Type 2 diabetes mellitus with diabetic polyneuropathy; E11.65 Type 2 diabetes mellitus with hyperglycemia; W01.0XXA Fall on same level from slipping, tripping and stumbling without subsequent striking against object, initial encounter; E88.81 Metabolic syndrome and other insulin resistance; G89.4 Chronic pain syndrome; S01.01XA Laceration without foreign body of scalp, initial encounter; Z79.899 Other long term (current) drug therapy; Y93.89 Activity, other specified; Y92.002 Bathroom of unspecified non-institutional (private) residence as the place of occurrence of the external cause; K74.60 Unspecified cirrhosis of liver; I25.10 Atherosclerotic heart disease of native coronary artery without angina pectoris; I11.9 Hypertensive heart disease without heart failure; F41.9 Anxiety disorder, unspecified; F32.9 Major depressive disorder, single episode, unspecified; H91.93 Unspecified hearing loss, bilateral; K80.20 Calculus of gallbladder without cholecystitis without obstruction; K76.0 Fatty (change of) liver, not elsewhere classified; Z86.73 Personal history of transient ischemic attack (TIA), and cerebral infarction without residual deficits; M48.02 Spinal stenosis, cervical region; D17.79 Benign lipomatous neoplasm of other sites; Z79.84 Long term (current) use of oral hypoglycemic drugs; E66.9 Obesity, unspecified; E83.119 Hemochromatosis, unspecified; Z68.33 Body mass index [BMI] 33.0-33.9, adult; V89.2XXS Person injured in unspecified motor-vehicle accident, traffic, sequela; E86.0 Dehydration; F99 Mental disorder, not otherwise specified; F10.10 Alcohol abuse, uncomplicated; Y90.0 Blood alcohol level of less than 20 mg/100 ml; F07.81 Postconcussional syndrome; E78.5 Hyperlipidemia, unspecified; H10.9 Unspecified conjunctivitis; F43.10 Post-traumatic stress disorder, unspecified
CPT/HCPCS: 36415; 70030-TC; 70450; 71010; 72125; 83550; 83735; 84100; 84443; 85025; 85610; 86850; 86900; 86901; 86920; 87086; 93307; A4217; A4663; C9113; G0480; J0696; J1170; J1815; J2060; J2270; J2405; J2543; J3370; J3490; J7030; J7040; J7050; J7060; P9016-BL; P9021; Q9951; Q9967

== ENCOUNTER 2017-09-11 09:02 | Emergency (ER) | payer MEDICARE ==
[~2017-09-11] VITALS: Ht 170.2 cm; Wt 95.3 kg
[~2017-09-11 09:02] MED LIST changes: +FLUC100T PO; -HYDR2TAB4 PO; +HYDR4TAB4 PO; +PANT40VI IV
[2017-09-11] MEDS ORDERED: METOPROLOL TARTRATE 50 MG TABLET PO ONE (09:30)
[2017-09-11] MEDS ORDERED: ACETAMINOPHEN ES 500 MG TABLET PO ONE (09:30)
[2017-09-11] MEDS ORDERED: ACETAMINOPHEN ES 500 MG TABLET ONE (09:40)
[2017-09-11] MEDS ORDERED: METOPROLOL TARTRATE 50 MG TABLET ONE (09:40)
[2017-09-11 09:45] LABS: BASOPHILS # (AUTO) 0.1 K/uL (0.0-8.0); BASOPHILS % (AUTO) 0.7 % (0.0-2.0); EOSINOPHILS % (AUTO) 0.2 % (0.0-7.0); HEMATOCRIT 37.3 % (36.7-47.1); HEMOGLOBIN 11.9 g/dL (12.5-16.3); LYMPHOCYTES # (AUTO) 1.3 K/uL (20.0-40.0); LYMPHOCYTES % (AUTO) 15.1 % (20.5-51.5); MEAN CORPUSCULAR HEMOGLOBIN 24.7 uug (23.8-33.4); MEAN CORPUSCULAR HGB CONC 32 g/dL (32.5-36.3); MEAN CORPUSCULAR VOLUME 77.3 fL (73.0-96.2); MONOCYTES # (AUTO) 0.7 K/uL (2.0-10.0); MONOCYTES % (AUTO) 7.8 % (0.0-11.0); NEUTROPHILS # (AUTO) 6.5 K/uL (1.8-8.9); NEUTROPHILS % (AUTO) 76.2 % (38.5-71.5); PLATELET COUNT (AUTO) 373 K/uL (152-348); RED BLOOD CELL COUNT(AUTO) 4.83 MIL/uL (4.06-5.63); WHITE BLOOD COUNT (AUTO) 8.5 K/uL (3.6-10.2)
[2017-09-11 09:52] LABS: CREATININE 1.3 mg/dL (0.6-1.3); POTASSIUM 4.4 mmol/L (3.5-5.1)
[2017-09-11 09:58] LABS: BILIRUBIN,DIRECT 0.1 mg/dL (0.0-0.2); BILIRUBIN,TOTAL 0.6 mg/dL (0.2-1.0); TOTAL PROTEIN, SERUM 8.3 g/dL (6.4-8.2)
[2017-09-11 10:35] LABS: BAND % (MANUAL) 3 % (0-10); BASOPHILS % (MANUAL) 1 % (0-2); LYMPHOCYTES % (MANUAL) 15 % (20-40); MONOCYTES % (MANUAL) 9 % (2-10); NEUTROPHILS % (MANUAL) 72 % (42-75)
--- NOTE | 2017-09-11 10:53 | NUR ---
Pt resting in gurney, appears comfortable with no s/s of distress noted. Pt states his headache is "gone".
--- NOTE | 2017-09-11 10:54 | NUR ---
Pt is at nursing station, speaking with ER physician and requesting to be admitted to the hospital.
--- NOTE | 2017-09-11 12:13 | NUR ---
DR Barakat spoke with patient no narcotics RX will be given he will need to follow with his PMD. Patient refuses to leave security was called to intervene. Patient discharged to home in stable conditon. Written and verbal after care instructions given. Patient verbalizes understanding of instructions.
[2017-09-11 12:19] VITALS: BP 144/78
== END 2017-09-11 12:19 | disposition home or self-care (01) ==
LOC: ER 09:02
DX: R51 Headache (principal); R10.31 Right lower quadrant pain; I10 Essential (primary) hypertension; E11.9 Type 2 diabetes mellitus without complications; E78.5 Hyperlipidemia, unspecified
CPT/HCPCS: 36415; 70450; 74176; 80048; 80076; 83690; 84484; 85025; 93005; 99285; A4663; 70030-TC

== ENCOUNTER 2017-09-11 20:16 | Emergency (ER) | payer MEDICARE ==
[~2017-09-11] VITALS: Ht 170.2 cm; Wt 95.3 kg
--- NOTE | 2017-09-11 21:04 | NUR ---
DR. CHAVEZ AT BEDSIDE FOR MSE.
[2017-09-11] MEDS ORDERED: ONDANSETRON ODT 4 MG TAB.RAPDIS SL ONE (21:15)
[2017-09-11] MEDS ORDERED: OXYCODONE/APAP 5-325 MG TABLET PO ONE (21:15)
[2017-09-11] MEDS ORDERED: ONDANSETRON ODT 4 MG TAB.RAPDIS ONE (21:30)
[2017-09-11] MEDS ORDERED: OXYCODONE/APAP 5-325 MG TABLET ONE (21:30)
--- NOTE | 2017-09-11 21:30 | NUR ---
Patient discharged to home in stable conditon. Written and verbal after care instructions given. Patient verbalizes understanding of instructions. patient left with stable gait.
[2017-09-11 21:32] VITALS: BP 151/92
== END 2017-09-11 21:32 | disposition home or self-care (01) ==
LOC: ER 20:16
DX: Z76.5 Malingerer [conscious simulation] (principal); G89.4 Chronic pain syndrome; F11.20 Opioid dependence, uncomplicated; R10.31 Right lower quadrant pain; I10 Essential (primary) hypertension; E11.9 Type 2 diabetes mellitus without complications; E78.5 Hyperlipidemia, unspecified
CPT/HCPCS: 99283; A4663; Q0162

== ENCOUNTER 2017-09-15 15:51 | Emergency (ER) | payer MEDICARE ==
[~2017-09-15] VITALS: Ht 162.6 cm; Wt 90.7 kg
--- NOTE | 2017-09-15 17:49 | NUR ---
MS COMPLETED, PT D/C'D HOME, ACI/RX X1 GIVEN . PT AMBULATED W/O DIFF/TOOK ALL BELONGINGS.
[2017-09-15 17:50] VITALS: BP 120/58
== END 2017-09-15 17:51 | disposition home or self-care (01) ==
LOC: ER 15:52
DX: G89.4 Chronic pain syndrome (principal); F11.20 Opioid dependence, uncomplicated; I10 Essential (primary) hypertension; E11.9 Type 2 diabetes mellitus without complications; E78.5 Hyperlipidemia, unspecified; R55 Syncope and collapse; H91.90 Unspecified hearing loss, unspecified ear; F43.10 Post-traumatic stress disorder, unspecified; G62.9 Polyneuropathy, unspecified
CPT/HCPCS: A4663

== ENCOUNTER 2017-11-19 12:31 | Emergency (ER) | payer MEDICARE ==
[~2017-11-19] VITALS: Ht 167.6 cm; Wt 77.1 kg
[2017-11-19] MEDS ORDERED: GLIM1TAB3 PO (12:47)
[2017-11-19] MEDS ORDERED: SERT50TA12 PO (12:47)
[2017-11-19] MEDS ORDERED: BUSP15TA3 PO (12:47)
[2017-11-19] MEDS ORDERED: LEVO25TA9 PO (12:47)
[2017-11-19] MEDS ORDERED: HALO2TAB PO (12:47)
[2017-11-19] MEDS ORDERED: TEST200V3 IM (12:47)
--- NOTE | 2017-11-19 12:56 | NUR ---
DR CASTELLANO AT THE BEDSIDE FOR EVAL AND EXAM.
[2017-11-19] MEDS ORDERED: HYDROCODONE/APAP 5-325MG TABLET PO ONE (13:15)
[2017-11-19] MEDS ORDERED: HYDROCODONE/APAP 5-325MG TABLET ONE (13:30)
--- NOTE | 2017-11-19 14:14 | NUR ---
pt was d/c to home. d/c instructions given to the pt.
[2017-11-19 14:15] VITALS: BP 148/88
== END 2017-11-19 14:15 | disposition home or self-care (01) ==
LOC: ER 12:35
DX: J02.9 Acute pharyngitis, unspecified (principal); I10 Essential (primary) hypertension; M79.602 Pain in left arm; E78.5 Hyperlipidemia, unspecified; E11.9 Type 2 diabetes mellitus without complications; G62.9 Polyneuropathy, unspecified
CPT/HCPCS: 71010; A4663

== ENCOUNTER 2017-11-28 14:27 | Emergency (ER) | payer MEDICARE ==
[~2017-11-28] VITALS: Ht 167.6 cm; Wt 77.1 kg
[~2017-11-28 14:27] MED LIST changes: +BUSP15TA3 PO; +GLIM1TAB3 PO; +HALO2TAB PO; +LEVO25TA9 PO; +SERT50TA12 PO; +TEST200V3 IM
--- NOTE | 2017-11-28 18:21 | NUR ---
Pt not found in ER lobby or outside ER.
== END 2017-11-28 18:23 | disposition left against medical advice (07) ==
LOC: ER 14:27
DX: Z53.21 Procedure and treatment not carried out due to patient leaving prior to being seen by health care provider (principal)
CPT/HCPCS: A4663

== ENCOUNTER 2018-05-18 07:19 | Inpatient (IN) | payer MEDICARE, MEDICAID ==
[~2018-05-18] VITALS: Ht 167.6 cm; Wt 92.5 kg
[~2018-05-18 07:19] MED LIST changes: -METF10002 PO; +METF10004 PO
[2018-05-18 07:58] LABS: BASOPHILS % (AUTO) 0.7 % (0.0-2.0); EOSINOPHILS # (AUTO) 0.1 K/uL (0.0-0.7); EOSINOPHILS % (AUTO) 1.9 % (0.0-7.0); HEMATOCRIT 48.5 % (36.7-47.1); HEMOGLOBIN 16.2 g/dL (12.5-16.3); LYMPHOCYTES # (AUTO) 2.2 K/uL (20.0-40.0); LYMPHOCYTES % (AUTO) 37.3 % (20.5-51.5); MEAN CORPUSCULAR HEMOGLOBIN 27.5 uug (23.8-33.4); MEAN CORPUSCULAR HGB CONC 34 g/dL (32.5-36.3); MEAN CORPUSCULAR VOLUME 82.2 fL (73.0-96.2); MONOCYTES # (AUTO) 0.4 K/uL (2.0-10.0); MONOCYTES % (AUTO) 6.1 % (0.0-11.0); NEUTROPHILS # (AUTO) 3.2 K/uL (1.8-8.9); PLATELET COUNT (AUTO) 182 K/uL (152-348); WHITE BLOOD COUNT (AUTO) 5.9 K/uL (3.6-10.2)
[2018-05-18 08:08] LABS: ETHANOL < 3 MG/DL (0-0)
[2018-05-18 08:12] LABS: BILIRUBIN,DIRECT 0.1 mg/dL (0.0-0.2); BILIRUBIN,TOTAL 0.5 mg/dL (0.2-1.0); CREATININE 1.4 mg/dL (0.6-1.3); POTASSIUM 4.9 mmol/L (3.5-5.1); TOTAL PROTEIN, SERUM 7.2 g/dL (6.4-8.2)
[2018-05-18 08:26] LABS: BASOPHILS % (MANUAL) 1 % (0-2); EOSINOPHILS % (MANUAL) 5 % (0-8); LYMPHOCYTES % (MANUAL) 43 % (20-40); MONOCYTES % (MANUAL) 4 % (2-10); MYELOCYTES % 1 % (0-0); NEUTROPHILS % (MANUAL) 45 % (42-75)
[2018-05-18 08:27] LABS: METAMYELOCYTES % 1 % (0-1)
[2018-05-18] MEDS ORDERED: POTASSIUM CHLORIDE 50 ML IV ONE (08:30)
[2018-05-18] MEDS ORDERED: IV NORMAL SALINE 1000 ML BAG IV ONE (08:30)
[2018-05-18] MEDS ORDERED: INSULIN REGULAR, HUMAN 100 UNIT in IV NORMAL SALINE 100 ML IV ONE ×2 (08:30)
[2018-05-18] MEDS ORDERED: POTASSIUM CHLORIDE 50 ML ONE (08:35)
[2018-05-18] MEDS ORDERED: RISPERIDONE PO (09:09)
[2018-05-18] MEDS ORDERED: INSULIN REGULAR, HUMAN 1,000 UNITS/10 ML VIAL SUBCUT ONE (10:45)
[2018-05-18 10:49] LABS: *BILIRUBIN,URIN NEGATIVE (NEGATIVE); *BLOOD, URINE NEGATIVE (NEGATIVE); *CLARITY,URINE CLEAR (CLEAR); *COLOR,URINE LIGHT YELLOW (YELLOW); *KETONES,URINE NEGATIVE (NEGATIVE); *PROTEIN,URINE NEGATIVE (NEGATIVE); *UROBILINOGEN,URINE 0.2 E.U./dl (NORMAL); LEUKOCYTE ESTERASE ,URINE NEGATIVE (NEGATIVE); NITRITE, URINE NEGATIVE (NEGATIVE)
[2018-05-18] MEDS ORDERED: INSULIN REGULAR, HUMAN 300 UNIT/3 ML VIAL ONE (10:54)
[2018-05-18 11:02] LABS: UGLUCOSE 3+ (NEGATIVE)
[2018-05-18 11:03] LABS: BACTERIA,URINE NONE SEEN /HPF (NONE SEEN); RBC,URINE 0-3 /HPF (0-3); SQUAMOUS EPITHELIAL CELL,UR FEW /HPF (NONE SEEN); WBC,URINE 0-3 /HPF (0-3)
[2018-05-18 11:48] LABS: CREATININE 1.2 mg/dL (0.6-1.3); POTASSIUM 4.5 mmol/L (3.5-5.1)
[2018-05-18 15:29] VITALS: BP 156/85
[2018-05-18] MEDS ORDERED: diphenhydrAMINE 50 MG/1 ML VIAL IV PRN (16:15)
[2018-05-18] MEDS ORDERED: ACETAMINOPHEN 325 MG TABLET PO PRN (16:15)
[2018-05-18] MEDS ORDERED: MAGNESIUM HYDROXIDE 30 ML LIQUID UDC PO PRN (16:15)
[2018-05-18] MEDS ORDERED: ONDANSETRON 4 MG/2 ML VIAL IV PRN (16:15)
[2018-05-18] MEDS ORDERED: HYDROMORPHONE 1 MG/1 ML DISP.SYRIN IV PRN (16:15)
[2018-05-18] MEDS ORDERED: TEMAZEPAM 30 MG CAPSULE PO PRN (16:15)
[2018-05-18] MEDS ORDERED: DEXTROSE 50% 50 ML DISP.SYRIN IV PRN (16:15)
[2018-05-18] MEDS ORDERED: GLIPIZIDE 10 MG PO SCH (16:30)
[2018-05-18] MEDS ORDERED: HYDROMORPHONE 2 MG/1 ML DISP.SYRIN IV PRN (16:45)
[2018-05-18] MEDS ORDERED: RISPERIDONE PO SCH (17:00)
[2018-05-18] MEDS ORDERED: Medication Not On Formulary EA (Metformin Hcl 1,000 MG) PO SCH (17:00)
[2018-05-18] MEDS: BLOOD SUGAR DIAGNOSTIC 1 EACH STRIP VI SCH ×2 (17:08→21:01)
[2018-05-18] MEDS: METFORMIN HCL 500 MG TABLET PO SCH (17:08)
[2018-05-18] MEDS: glipiZIDE 10 MG TABLET PO SCH (17:12)
[2018-05-18] MEDS: INSULIN REGULAR, HUMAN 300 UNIT/3 ML VIAL SQ PRN (17:18)
[2018-05-18] MEDS ORDERED: LORAZEPAM 1 MG TABLET PO PRN (18:00)
[2018-05-18 19:33] VITALS: BP 131/79
[2018-05-18] MEDS: HYDROMORPHONE 2 MG/1 ML DISP.SYRIN IV PRN ×2 (20:10→22:40)
[2018-05-18] MEDS: DOCUSATE SODIUM 100 MG CAPSULE PO SCH (21:01)
[2018-05-18] MEDS: GENTAMICIN SULFATE OPHT DROP 5 ML BOTTLE LEFTEYE SCH (21:02)
[2018-05-18] MEDS: INSULIN REGULAR, HUMAN 300 UNITS/3 ML VIAL SQ PRN (21:06)
[2018-05-19] MEDS: HYDROMORPHONE 2 MG/1 ML DISP.SYRIN IV PRN ×8 (02:49→23:52)
[2018-05-19 03:42] VITALS: BP 135/84
[2018-05-19] MEDS: BLOOD SUGAR DIAGNOSTIC 1 EACH STRIP VI SCH ×4 (05:32→20:32)
[2018-05-19] MEDS: LEVOTHYROXINE SODIUM 25 MCG TABLET PO SCH (05:33)
[2018-05-19] MEDS: PANTOPRAZOLE SODIUM 40 MG TABLET.DR PO SCH (05:33)
[2018-05-19] MEDS: glipiZIDE 10 MG TABLET PO SCH ×2 (05:33→17:12)
[2018-05-19 06:14] LABS: BASOPHILS % (AUTO) 0.5 % (0.0-2.0); EOSINOPHILS # (AUTO) 0.2 K/uL (0.0-0.7); EOSINOPHILS % (AUTO) 2.9 % (0.0-7.0); HEMATOCRIT 43.9 % (36.7-47.1); HEMOGLOBIN 14.7 g/dL (12.5-16.3); LYMPHOCYTES % (AUTO) 39.4 % (20.5-51.5); MEAN CORPUSCULAR HEMOGLOBIN 26.8 uug (23.8-33.4); MEAN CORPUSCULAR HGB CONC 34 g/dL (32.5-36.3); MONOCYTES # (AUTO) 0.5 K/uL (2.0-10.0); MONOCYTES % (AUTO) 6.9 % (0.0-11.0); NEUTROPHILS # (AUTO) 3.9 K/uL (1.8-8.9); NEUTROPHILS % (AUTO) 50.3 % (38.5-71.5); PLATELET COUNT (AUTO) 183 K/uL (152-348); RED BLOOD CELL COUNT(AUTO) 5.48 MIL/uL (4.06-5.63); WHITE BLOOD COUNT (AUTO) 7.7 K/uL (3.6-10.2)
[2018-05-19 06:51] LABS: BILIRUBIN,TOTAL 0.3 mg/dL (0.2-1.0); CREATININE 0.9 mg/dL (0.6-1.3); MAGNESIUM 1.9 mg/dL (1.8-2.4); PHOSPHOROUS 4.6 mg/dL (2.5-4.9); POTASSIUM 4.1 mmol/L (3.5-5.1); TOTAL PROTEIN, SERUM 6.4 g/dL (6.4-8.2); URIC ACID 3.7 mg/dL (3.5-7.2)
[2018-05-19 06:52] LABS: THYROID STIMULATING HORMONE 2.561 mIU/mL (0.358-3.740)
[2018-05-19 07:32] LABS: EOSINOPHILS % (MANUAL) 3 % (0-8); LYMPHOCYTES % (MANUAL) 40 % (20-40); METAMYELOCYTES % 2 % (0-1); MONOCYTES % (MANUAL) 7 % (2-10); NEUTROPHILS % (MANUAL) 48 % (42-75)
[2018-05-19] MEDS: GENTAMICIN SULFATE OPHT DROP 5 ML BOTTLE LEFTEYE SCH ×4 (08:10→20:30)
[2018-05-19] MEDS: ASPIRIN EC 81 MG TABLET.DR PO SCH (08:11)
[2018-05-19] MEDS: METFORMIN HCL 500 MG TABLET PO SCH ×2 (08:11→17:12)
[2018-05-19] MEDS: SERTRALINE HCL 50 MG TABLET PO SCH (08:11)
[2018-05-19] MEDS: INSULIN REGULAR, HUMAN 300 UNIT/3 ML VIAL SQ PRN ×3 (08:13→17:18)
[2018-05-19 11:41] VITALS: BP 139/88
[2018-05-19 15:56] VITALS: BP 136/81
[2018-05-19 20:01] VITALS: BP 124/84
[2018-05-19] MEDS: DOCUSATE SODIUM 100 MG CAPSULE PO SCH (20:30)
[2018-05-19] MEDS: INSULIN REGULAR, HUMAN 300 UNITS/3 ML VIAL SQ PRN (20:36)
[2018-05-20] MEDS ORDERED: INSULIN GLARGINE,HUM 300 UNITS/3 ML CARTRIDGE SQ ONE (00:13)
[2018-05-20] MEDS: INSULIN GLARGINE,HUM 300 UNITS/3 ML CARTRIDGE SQ SCH ×2 (00:28→20:35)
[2018-05-20] MEDS: HYDROMORPHONE 2 MG/1 ML DISP.SYRIN IV PRN ×6 (04:26→21:35)
[2018-05-20 05:00] VITALS: BP 141/83
[2018-05-20] MEDS: LEVOTHYROXINE SODIUM 25 MCG TABLET PO SCH (06:23)
[2018-05-20] MEDS: PANTOPRAZOLE SODIUM 40 MG TABLET.DR PO SCH (06:23)
[2018-05-20] MEDS: BLOOD SUGAR DIAGNOSTIC 1 EACH STRIP VI SCH ×4 (06:30→20:36)
[2018-05-20] MEDS: glipiZIDE 10 MG TABLET PO SCH ×2 (06:30→16:36)
[2018-05-20] MEDS: SERTRALINE HCL 50 MG TABLET PO SCH (08:30)
[2018-05-20] MEDS: ASPIRIN EC 81 MG TABLET.DR PO SCH (08:30)
[2018-05-20] MEDS: METFORMIN HCL 500 MG TABLET PO SCH ×2 (08:30→17:50)
[2018-05-20] MEDS: GENTAMICIN SULFATE OPHT DROP 5 ML BOTTLE LEFTEYE SCH ×4 (08:31→20:33)
[2018-05-20] MEDS: INSULIN REGULAR, HUMAN 300 UNIT/3 ML VIAL SQ PRN ×3 (08:36→16:41)
[2018-05-20 11:45] VITALS: BP 103/64
[2018-05-20 16:00] VITALS: BP 120/75
[2018-05-20 20:00] VITALS: BP 136/77
[2018-05-20] MEDS: DOCUSATE SODIUM 100 MG CAPSULE PO SCH (20:33)
[2018-05-20] MEDS: INSULIN REGULAR, HUMAN 300 UNITS/3 ML VIAL SQ PRN (20:36)
[2018-05-21] MEDS: HYDROMORPHONE 2 MG/1 ML DISP.SYRIN IV PRN ×5 (01:13→14:26)
[2018-05-21 04:25] VITALS: BP 152/85
[2018-05-21] MEDS: PANTOPRAZOLE SODIUM 40 MG TABLET.DR PO SCH (06:17)
[2018-05-21] MEDS: LEVOTHYROXINE SODIUM 25 MCG TABLET PO SCH (06:17)
[2018-05-21] MEDS: glipiZIDE 10 MG TABLET PO SCH (06:34)
[2018-05-21] MEDS: BLOOD SUGAR DIAGNOSTIC 1 EACH STRIP VI SCH ×2 (06:35→11:41)
[2018-05-21] MEDS: INSULIN REGULAR, HUMAN 300 UNIT/3 ML VIAL SQ PRN ×2 (08:09→11:47)
[2018-05-21] MEDS: ASPIRIN EC 81 MG TABLET.DR PO SCH (08:10)
[2018-05-21] MEDS: METFORMIN HCL 500 MG TABLET PO SCH (08:10)
[2018-05-21] MEDS: SERTRALINE HCL 50 MG TABLET PO SCH (08:10)
[2018-05-21] MEDS: GENTAMICIN SULFATE OPHT DROP 5 ML BOTTLE LEFTEYE SCH ×2 (08:11→13:12)
[2018-05-21 11:36] VITALS: BP 138/75
[2018-05-21] MEDS ORDERED: MAGN400O6 PO (15:10)
[2018-05-21] MEDS ORDERED: INSU100V7 SQ (15:10)
[2018-05-21] MEDS ORDERED: OXYC30TA86 PO (15:10)
[2018-05-21] MEDS ORDERED: Blood Sugar Diagnostic VI (15:10)
[2018-05-21] MEDS ORDERED: LISI10TA5 PO (15:10)
[2018-05-21] MEDS ORDERED: DEXT50DI8 IV (15:10)
[2018-05-21] MEDS ORDERED: DIPH25CA83 PO (15:10)
[2018-05-21] MEDS ORDERED: ACET325T53 PO (15:10)
[2018-05-21] MEDS ORDERED: CLON1TAB4 PO (15:10)
[2018-05-21] MEDS ORDERED: MULT1TAB73 PO (15:10)
[2018-05-21] MEDS ORDERED: DOCU100C36 PO (15:10)
[2018-05-21] MEDS ORDERED: TEMA30CA PO (15:10)
[2018-05-21] MEDS ORDERED: ASPI-618 PO (15:10)
[2018-05-21] MEDS ORDERED: PANT40TA2 PO (15:10)
[2018-05-21] MEDS ORDERED: GLIP10TA11 PO (15:10)
[2018-05-21] MEDS ORDERED: HYDR4TAB4 PO (15:10)
[2018-05-21] MEDS ORDERED: INSU100V28 SQ ×2 (15:10)
[2018-05-21 15:40] VITALS: BP 120/72
== END 2018-05-21 16:30 | DRG 637 ==
LOC: ER 07:19 → MED 12:02
PROVIDERS: ADMIT Internal Medicine; ATTEND Internal Medicine
DX: E11.00 Type 2 diabetes mellitus with hyperosmolarity without nonketotic hyperglycemic-hyperosmolar coma (NKHHC) (principal); G93.40 Encephalopathy, unspecified; N17.0 Acute kidney failure with tubular necrosis; F11.20 Opioid dependence, uncomplicated; I25.10 Atherosclerotic heart disease of native coronary artery without angina pectoris; E66.9 Obesity, unspecified; E78.5 Hyperlipidemia, unspecified; G89.4 Chronic pain syndrome; G62.9 Polyneuropathy, unspecified; Z86.73 Personal history of transient ischemic attack (TIA), and cerebral infarction without residual deficits; Z79.84 Long term (current) use of oral hypoglycemic drugs; K29.50 Unspecified chronic gastritis without bleeding; E86.0 Dehydration; I35.1 Nonrheumatic aortic (valve) insufficiency; E88.81 Metabolic syndrome and other insulin resistance; K80.20 Calculus of gallbladder without cholecystitis without obstruction; K74.60 Unspecified cirrhosis of liver; M48.02 Spinal stenosis, cervical region; E11.42 Type 2 diabetes mellitus with diabetic polyneuropathy; R53.1 Weakness; I11.9 Hypertensive heart disease without heart failure; R93.1 Abnormal findings on diagnostic imaging of heart and coronary circulation; V89.2XXS Person injured in unspecified motor-vehicle accident, traffic, sequela; H91.90 Unspecified hearing loss, unspecified ear; K76.0 Fatty (change of) liver, not elsewhere classified; Z91.14 Patient's other noncompliance with medication regimen; Z79.4 Long term (current) use of insulin
CPT/HCPCS: 36415; 70030-TC; 71045; 72100; 83550; 83690; 83735; 84100; 84443; 84550; 85025; 93005; 93307; A4663; G0480; J1170; J1815; J2405; J3480; J3490; J7030

== ENCOUNTER 2018-07-22 14:17 | Emergency (ER) | payer MEDICARE, MEDICAID ==
[~2018-07-22] VITALS: Ht 167.6 cm; Wt 93.0 kg
[~2018-07-22 14:17] MED LIST changes: +ACET325T53 PO; +ASPI-618 PO; -BUSP15TA3 PO; +Blood Sugar Diagnostic VI; -CLON0.1T PO; +CLON1TAB5 PO; -CLON2TAB PO; +DEXT50DI8 IV; +DIPH25CA83 PO; +DOCU100C36 PO; -FLUC100T PO; -GLIM1TAB3 PO; +GLIP10TA11 PO; -HALO2TAB PO; +INSU100V28 SQ; +INSU100V7 SQ; +LISI10TA5 PO; -LITH300T3 PO; +MAGN400O6 PO; -MULT-24 PO; +MULT1TAB73 PO; +OXYC30TA86 PO; +PANT40TA2 PO; -PANT40VI IV; +TEMA30CA PO; -TEMA30CA5 PO; -TEST200V3 IM
[2018-07-22] MEDS: IV NORMAL SALINE 1000 ML BAG IV ONE (14:46)
[2018-07-22 14:49] LABS: BASOPHILS # (AUTO) 0.1 K/uL (0.0-8.0); EOSINOPHILS # (AUTO) 0.3 K/uL (0.0-0.7); EOSINOPHILS % (AUTO) 2.5 % (0.0-7.0); HEMATOCRIT 42.1 % (36.7-47.1); HEMOGLOBIN 13.7 g/dL (12.5-16.3); LYMPHOCYTES # (AUTO) 2.8 K/uL (20.0-40.0); LYMPHOCYTES % (AUTO) 27.7 % (20.5-51.5); MEAN CORPUSCULAR HEMOGLOBIN 27.9 uug (23.8-33.4); MEAN CORPUSCULAR HGB CONC 33 g/dL (32.5-36.3); MEAN CORPUSCULAR VOLUME 85.7 fL (73.0-96.2); MONOCYTES # (AUTO) 0.6 K/uL (2.0-10.0); MONOCYTES % (AUTO) 5.6 % (0.0-11.0); NEUTROPHILS # (AUTO) 6.5 K/uL (1.8-8.9); NEUTROPHILS % (AUTO) 63.2 % (38.5-71.5); PLATELET COUNT (AUTO) 305 K/uL (152-348); RED BLOOD CELL COUNT(AUTO) 4.91 MIL/uL (4.06-5.63); WHITE BLOOD COUNT (AUTO) 10.2 K/uL (3.6-10.2)
--- NOTE | 2018-07-22 14:51 | NUR ---
labs drawn/urine sent/ekg-cxr done, monitor shows nsr, 1L 0.9ns infusing.
[2018-07-22 14:59] LABS: *BILIRUBIN,URIN NEGATIVE (NEGATIVE); *BLOOD, URINE NEGATIVE (NEGATIVE); *CLARITY,URINE CLEAR (CLEAR); *COLOR,URINE YELLOW (YELLOW); *KETONES,URINE 2+ (NEGATIVE); *PROTEIN,URINE 2+ (NEGATIVE); *UROBILINOGEN,URINE 0.2 E.U./dl (NORMAL); LEUKOCYTE ESTERASE ,URINE NEGATIVE (NEGATIVE); NITRITE, URINE NEGATIVE (NEGATIVE); PH,URINE 5.5 (5.0-8.0); UGLUCOSE NEGATIVE (NEGATIVE)
[2018-07-22 15:02] LABS: BILIRUBIN,DIRECT 0.1 mg/dL (0.0-0.2); BILIRUBIN,TOTAL 0.1 mg/dL (0.2-1.0); CREATININE 1.2 mg/dL (0.6-1.3); TOTAL PROTEIN, SERUM 7.1 g/dL (6.4-8.2)
[2018-07-22 15:09] LABS: BACTERIA,URINE NONE SEEN /HPF (NONE SEEN); MUCUS,URINE MANY /LPF (0-FEW); RBC,URINE 0-3 /HPF (0-3); SQUAMOUS EPITHELIAL CELL,UR FEW /HPF (NONE SEEN)
[2018-07-22] MEDS ORDERED: LISI10TA5 PO (15:21)
[2018-07-22] MEDS ORDERED: METF500T6 PO (15:21)
[2018-07-22] MEDS ORDERED: GLIP10TA11 PO (15:21)
[2018-07-22] MEDS ORDERED: PIOG30TA10 PO (15:21)
[2018-07-22] MEDS ORDERED: LITH300C2 PO (15:21)
[2018-07-22] MEDS ORDERED: GLIP5TAB13 PO (15:21)
[2018-07-22 15:31] LABS: BAND % (MANUAL) 2 % (0-10); LYMPHOCYTES % (MANUAL) 28 % (20-40); NEUTROPHILS % (MANUAL) 62 % (42-75)
[2018-07-22 15:32] LABS: EOSINOPHILS % (MANUAL) 1 % (0-8); MONOCYTES % (MANUAL) 7 % (2-10)
--- NOTE | 2018-07-22 15:54 | NUR ---
1L INFUSED, IV D/C'D INTACT, PT D/C'D HOME, ACI GIVEN, PT AMBUKLATED W/O DIFF/TOOK ALL BELONGINGS.
[2018-07-22 15:56] VITALS: BP 125/70
== END 2018-07-22 15:57 | disposition home or self-care (01) ==
LOC: ER 14:17
DX: E86.0 Dehydration (principal); I10 Essential (primary) hypertension; E11.9 Type 2 diabetes mellitus without complications; E78.5 Hyperlipidemia, unspecified
CPT/HCPCS: 36415; 70030-TC; 71045; 83690; 85025; 93005; A4663; J7030